=== PATIENT | male | born 1945 | race Caucasian/White ===

== ENCOUNTER → 2016-08-07 | Outpatient (CLI) | payer OTHER ==
[~2016-08-07] MED LIST: ASCO500T16 PO; ASPI-232 PO; ATV/1 PO; COEN10CA5 PO; CTP/1 PO; CTPTP2 TOP; CYAN100T6 PO; LPT40 PO; MAGN1TAB19 PO; METO50TA7 PO; MULT-506 PO; NITR0.4S UT; OMEP20CA9 PO; PLV75 PO; ROSU20TA PO; SILD100T PO; TRIA37.5 PO
--- NOTE | 2016-08-08 19:30 | MYOCARDIAL PERFUSION SCAN ---
REQUESTING PHYSICIAN: Stephon Mensah MD PRIMARY CARE PHYSICIAN: Dr. Nair. TYPE OF STUDY: One-day nuclear medicine technetium-99m Cardiolite myocardial perfusion scan. INDICATION: Exertional atypical chest pain, history of CAD. ELECTROCARDIOGRAM: Baseline EKG shows normal sinus rhythm without significant ST abnormalities. STRESS ELECTROCARDIOGRAM: The patient exercised for 7 minutes and 24 seconds on a standard Carlos protocol, obtained 10.1 MET workload and heart rate of 130 beats per minute (87% maximum predicted heart rate). Resting blood pressure bradley from 172/80-184/78, test was ended due to the fatigue, patient did experience some mild chest burning. With peak exercise, patient had sinus tachycardia with horizontal upsloping ST depressions, 1 mm in the lateral leads, which resolved within 2 minute into recovery. TECHNIQUE: For the stress portion of the study 32.4 mCi of technetium-99m Cardiolite IV was injected at 13:20 p.m. on August 07. Fifteen minutes following the injection, imaging of the heart was performed in multiple projections. For the rest portion of the study, 10.7 mCi of technetium-99m Cardiolite was injected IV at 11:25 a.m. One hour following the injection, imaging of the heart was performed in the same projections. FINDINGS: Rotating raw images were reviewed in detail. There was evidence of mild diaphragmatic attenuation as well as gut and liver uptake near the inferior imaging border of the heart. There was no significant extracardiac pathologic uptake. Short axis, vertical long axis, and horizontal long axis images were reviewed in detail. There was a subtle, small, partially reversible inferolateral, lateral perfusion defect. LV function in this territory was normal and there was suggestion of diaphragmatic shadow. Suspect this largely represents artifact. Otherwise, perfusion was normal. LV size was normal with end-diastolic volume of 83 mL. LV function overall was normal with EF of 68%. There were no regional wall motion abnormalities. IMPRESSION: 1. Grossly normal myocardial perfusion scan. Small subtle lateral defect likely represents artifact less likely, represents a small amount of ischemia in a diagonal, obtuse marginal distribution (STS less than 3). 2. Normal overall left ventricular systolic function with an ejection fraction of 68% and no regional wall motion abnormalities, normal left ventricular size. 3. Positive stress EKG for ischemia with [address] depressions laterally at 87% maximum predicted heart rate. ST segments quickly resolved within 2 minutes in recovery. 4. Above average exercise tolerance, exercised for 7 minutes and 24 seconds, achieved 10.1 METS. Mild nonlimiting chest burning with exertion.
== END | disposition home or self-care (01) ==
LOC: C.NUCL 11:01
PROVIDERS: ATTEND Internal Medicine Cardiovascular Disease
DX: I25.10 Atherosclerotic heart disease of native coronary artery without angina pectoris (principal)

== ENCOUNTER → 2016-08-10 | Outpatient (CLI) | payer OTHER ==
--- NOTE | 2016-08-10 13:11 | DIAGNOSTIC IMAGING REPORT ---
RIGHT HAND MIN 3 VIEWS CLINICAL HISTORY: Right hand pain. No known injury. COMPARISON: Right hand radiographs April 06, 2007. FINDINGS: Alignment of the right hand is anatomic. There is no fracture or suspicious lesion. There may be a cyst within the third metacarpal head. This is unchanged. No erosions are identified. Joint spaces are preserved. IMPRESSION: Unremarkable right hand radiographs for age. Electronically signed by: Tristen Manley M.D. 08/10/2016 1:09 PM Dictated Date/Time: 08/10/2016 1:08 PM
== END | disposition home or self-care (01) ==
LOC: C.RDSM 13:21
PROVIDERS: ATTEND Physician Assistant
DX: M79.641 Pain in right hand (principal)

== ENCOUNTER → 2016-12-08 | Outpatient (CLI) | payer OTHER ==
[~2016-12-08] MED LIST changes: -CTPTP2 TOP; +GADAVIST IV PRN; -LPT40 PO
--- NOTE | 2016-12-08 13:21 | DIAGNOSTIC IMAGING REPORT ---
BRAIN COMBO CLINICAL HISTORY: 71 years-old Male presenting with DIZZINESS, ABNORMAL GAIT. TECHNIQUE: Multisequence, multiplanar MR imaging of the brain was performed before and after the administration of intravenous contrast. IV contrast: 3.5 mL of Gadavist. COMPARISON: 07/28/2006. FINDINGS: Proportional ventricular and sulcal prominence, likely age-related parenchymal volume loss. Periventricular and subcortical white matter T2/FLAIR hyperintensity, nonspecific but likely indicative of chronic small vessel ischemic change. No mass effect or midline shift. No restricted diffusion to suggest acute ischemia. No hemorrhage. No extra-axial fluid collection. T2 skull base flow voids preserved. No abnormal parenchymal enhancement. Bone marrow signal intensity within the calvarium within normal limits. Polypoid mucosal thickening in the sphenoid sinus. IMPRESSION: 1. Chronic small vessel ischemic change. No acute intracranial abnormality. 2. No abnormal enhancement. Electronically signed by: Simon Han M.D. 12/08/2016 1:19 PM Dictated Date/Time: 12/08/2016 1:15 PM
== END | disposition home or self-care (01) ==
LOC: C.MRIBC 12:23
PROVIDERS: ATTEND Physician Assistant
DX: R26.9 Unspecified abnormalities of gait and mobility (principal); R42 Dizziness and giddiness; I95.1 Orthostatic hypotension

== ENCOUNTER → 2017-03-09 | Outpatient (CLI) | payer OTHER ==
[~2017-03-09] MED LIST changes: +CTPTP2 TOP; -GADAVIST IV PRN; +LPT40 PO; -PLV75 PO; -ROSU20TA PO
--- NOTE | 2017-03-09 14:46 | DIAGNOSTIC IMAGING REPORT ---
R SHOULDER MIN 2 VIEWS CLINICAL HISTORY: RIGHT SHOULDER PAIN COMPARISON: None. DISCUSSION: No fractures or dislocations are visualized. There are no erosive or destructive changes. IMPRESSION: Unremarkable measuring radiographic evaluation of the right shoulder. Electronically signed by: Kemal Torres M.D. 03/09/2017 2:45 PM Dictated Date/Time: 03/09/2017 2:44 PM
== END | disposition home or self-care (01) ==
LOC: C.RDSM 07:29
PROVIDERS: ATTEND Physician Assistant
DX: R52 Pain, unspecified (principal)

== ENCOUNTER 2023-08-22 09:35 | Observation (INO) ==
--- OUTSIDE RECORDS SUMMARY | 2023-08-22 09:39 | External Medical Summary | Continuity of Care Document ---
Author Name Unknown Organization [facility] [address] [place] [phone] Care Team Providers Care Supervisor Of Research Name Role Phone Justo Xavier Primary Care Physician [phone] Encounter [facility] [id number] Date(s): 08/11/23 - 08/11/23 [facility] [address] [facility] Medical [facility] [address] [id number] [phone] Encounter Diagnosis Body mass index [BMI] 29.0-29.9, adult(Discharge Diagnosis) - 08/11/23 OTHER AND UNSPECIFIED HYPERLIPIDEMIA(Discharge Diagnosis) - 08/11/23 IFG (impaired fasting glucose)(Discharge Diagnosis) - 08/11/23 CAD(Discharge Diagnosis) - 08/11/23 CAD(Discharge Diagnosis) - 08/11/23 Elevated serum protein level(Discharge Diagnosis) - 08/11/23 Low vitamin B12 level(Discharge Diagnosis) - 08/11/23 Serum calcium elevated(Discharge Diagnosis) - 08/11/23 HTN (hypertension)(Discharge Diagnosis) - 08/11/23 Discharge Disposition: Home or Self Care Attending Physician: DO Xavier Franklin J Allergies, Adverse Reactions, Alerts Substance Criticality Severity Reaction Reaction Severity Status lisinopril cough Active Avapro muscle cramps Active Endocet itchy Active Animal dander 1 Itching of eye Active Percocet Itching Activ e 1cats Assessment and Plan Extracted from: Title:General Exam * Author:DO Xavier Franklin J Date:08/11/23 Impression and Plan Diagnosis Serum calcium elevated (TXP21-HQ E83.52, Discharge, Medical). OTHER AND UNSPECIFIED HYPERLIPIDEMIA (WNV46-AW E78.5, Discharge, Medical). Low vitamin B12 level (HKY13-HM R79.89, Discharge, Medical). IFG (impaired fasting glucose) (UFD86-LE R73.01, Discharge, Medical). HTN (hypertension) ([id number]-[id number] I10, Discharge, Medical). Elevated serum protein level (QKU74-GY R77.9, Discharge, Medical). CAD (KAV48-TV I25.10, Discharge, Medical). CAD (QFV04-BW I25.10, Discharge, Medical). Plan: Thrombocytopenia (chronic/stable) Anemia (chronic/stable) He had a work up with oncology previously, including BMB, and thrombocytopenia thought to be multifactorial Platelet count has slowly trended up and is now in normal range B12 deficiency (chronic/not at goal) Improved with IM supplementation Continue p.o. supplementation Check B2 level with next labs Elevated Calcium (new) Add Vitamin D 3,000-5,000 IUs daily Check Vitamin D level and PTH in about three months Elevated Serum Protein (new) Check SPEP and UPEP along with CBC in three months CAD (chronic/stable) No signs or symptoms Continue care with cardiology HTN (chronic/stable) Reasonable today He is always slightly higher in the office than at home Continue same; primarily managed by cardiology Steatohepatitis (chronic/stable) LFTs with slight elevation, but with his range Recheck 6 months IFG (chronic/stable) Improved Recheck A1c in 6 months Balance concerns (chronic/not at goal) Neurology consult reviewed with patient Probably multifactorial, slowed reflexes and decreased core muscle strength Discussed physical therapy as a means to improve both, he will consider Discussed general fall prevention. Orders PowerOrders Laboratory: CMP Request (Order): Routine, 08/11/2023 14:03 EDT, Requested Timeframe 2 Weeks Prior to Next Visit UPEP Random Request (Order): 08/11/2023 14:03 EDT, Routine, Requested Timeframe 2 Weeks Prior to Next Visit, Urine SPEP Request (Order): Routine, 08/11/2023 14:03 EDT, Requested Timeframe 2 Weeks Prior to Next Visit Vitamin B12 Level Request (Order): Routine, 08/11/2023 14:03 EDT, Requested Timeframe 2 Weeks Prior to Next Visit Vitamin D, 25-Hydroxy Level, Total Request (Order): Routine, 08/11/2023 14:02 EDT, Requested Timeframe 2 Weeks Prior to Next Visit PTH Request (Order): Routine, 08/11/2023 14:02 EDT, Requested Timeframe 2 Weeks Prior to Next Visit, Fasting CBC w Platelets and Diff Request (Order): Routine, 08/11/2023 14:03 EDT, Requested Timeframe 2 Weeks Prior to Next Visit Evaluation and Management: [id number] Outpatient Visit Est Lvparag 4 (Order): 08/11/2023 14:04 EDT, [facility]ILY [facility], Elevated serum protein level | Low vitamin B12 level | Serum calcium elevated | HTN (hypertension) | OTHER AND UNSPECIFIED HYPERLIPIDEMIA | IFG (impaired fasting glucose) | CAD. PowerOrders Patient Care Ambulatory: Follow Up Appointment Ambulatory (Order): In 6 Months, Appointment Type In Office, 40, Follow up With DO Xavier Franklin J. Immunizations Given and Recorded Vaccine Date Status Refusal Reason SARS-CoV-2 (COVID-19) mRNA-vacc - [id number] 01/26/23 Recorded RSV vaccine preF3, recombinant 01/19/23 Recorded influenza virus vaccine, inactivated 01/19/23 Naga rded influenza virus vaccine, inactivated 01/12/22 Naga rded influenza virus vaccine, inactivated 01/17/19 Naga rded influenza virus vaccine, inactivated 1 12/25/17 Re corded influenza virus vaccine, inactivated 11/30/16 Give n influenza virus vaccine, inactivated 01/23/16 Give n influenza virus vaccine, inactivated 01/01/15 Give n influenza virus vaccine, inactivated 01/03/14 Give n influenza virus vaccine, inactivated 12/20/12 Give n influenza virus vaccine, inactivated 01/11/12 Give n influenza virus vaccine, inactivated 2 12/26/09 Re corded influenza virus vaccine, inactivated 3 12/20/08 Re corded influenza virus vaccine, inactivated 4 01/19/08 Re corded influenza virus vaccine, inactivated 5 12/20/06 Re corded influenza virus vaccine, inactivated 6 02/04/06 Re corded influenza virus vaccine, inactivated 7 01/15/05 Re corded influenza virus vaccine, inactivated 8 01/30/04 Re corded influenza virus vaccine, inactivated 9 01/18/03 Re corded influenza virus vaccine, inactivated 10 01/04/02 R ecorded influenza virus vaccine, inactivated 11 02/04/01 R ecorded influenza virus vaccine, inactivated 12 03/04/00 R ecorded influenza virus vaccine, inactivated 13 02/12/99 R ecorded influenza virus vaccine, inactivated 14 01/18/98 R ecorded influenza virus vaccine, inactivated 15 01/29/97 R ecorded tetanus/diphtheria/pertuss, acel (Tdap) 07/31/21 R ecorded tetanus/diphtheria/pertuss, acel (Tdap) 09/16/10 R ecorded SARS-CoV-2 (COVID-19) mRNA-1273 vaccine 07/31/21 R ecorded zoster vaccine, inactivated 06/20/21 Recorded zoster vaccine, inactivated 01/20/21 Recorded pneumococcal 23-valent vaccine 16 08/09/17 Given pneumococcal 23-valent vaccine 17 06/17/06 Recorde d pneumococcal 13-valent vaccine 07/06/14 Given zoster vaccine live 18 07/16/09 Recorded influenza virus vaccine, H1N1 19 04/30/09 Recorded tetanus toxoids-diphtheria, Td (Adult) 20 06/11/05 Recorded tetanus toxoids-diphtheria, Td (Adult) 21 01/20/94 Recorded 1Result Comment: 2018-03-16: Historical information-source unspecified 2Result Comment: 2018-03-16: Historical information-source unspecified 3Result Comment: 2018-03-16: Historical information-source unspecified 4Result Comment: 2018-03-16: Historical information-source unspecified 5Result Comment: 2018-03-16: Historical information-source unspecified 6Result Comment: 2018-03-16: Historical information-source unspecified 7Result Comment: 2018-03-16: Historical information-source unspecified 8Result Comment: 2018-03-16: Historical information-source unspecified 9Result Comment: 2018-03-16: Historical information-source unspecified 10Result Comment: 2018-03-16: Historical information-source unspecified 11Result Comment: 2018-03-16: Historical information-source unspecified 12Result Comment: 2018-03-16: Historical information-source unspecified 13Result Comment: 2018-03-16: Historical information-source unspecified 14Result Comment: 2018-03-16: Historical information-source unspecified 15Result Comment: 2018-03-16: Historical information-source unspecified 16Early/Late Reason: Other : because 17Result Comment: 2018-03-16: Historical information-source unspecified 18Result Comment: 2018-03-16: Historical information-source unspecified 19Result Comment: 2021-02-05: Historical information-source unspecified 20Result Comment: 2018-03-16: Historical information-source unspecified 21Result Comment: 2018-03-16: Historical information-source unspecified Medications aspirin Start: 08/02/15 9:42:00 AM EDT, 81 mg =, qPM Start Date: 08/02/15 Status: Ordered atorvastatin 40 mg oral tablet Start: 08/02/15 10:03:00 AM EDT, 1 tab, PO, qhs Start Date: 08/02/15 Status: Ordered cloNIDine 0.3 mg/24 hr transdermal film, extended release Start: 12/04/22 10:19:00 AM EDT, See Instructions, Disp# 12 patch, Refills: 3, APPLY 1 PATCH TOPICALLY EVERY 7 DAYS, Pharmacy: [facility] Start Date: 12/04/22 Status: Ordered Coenzyme Q10 Start: 04/18/10 10:36:22 AM EST, 100 mg =, PO, Daily, Refills: 0, current medication from another provider Start Date: 04/18/10 Status: Ordered doxycycline hyclate 100 mg oral capsule Start: 07/01/23 2:53:00 PM EDT, 1 cap, PO, Daily, Disp# 30 cap, Refills: 1, One daily with food, Pharmacy: [id number] Start Date: 07/01/23 Status: Ordered fluocinonide 0.05% topical solution Start: 03/23/22 11:42:00 AM EST, See Instructions, Disp# 20 mL, Refills: 1, TO red itchy scalp once or twice a day., Pharmacy: [id number] Start Date: 03/23/22 Status: Ordered hydrochlorothiazide-triamterene 25 mg-37.5 mg oral capsule Start: 05/28/23 12:57:00 PM EST, 1 cap, PO, Daily, Disp# 90 cap, Refills: 3, Pharmacy: [facility] Start Date: 05/28/23 Status: Ordered ketoconazole 2% topical shampoo Start: 01/26/23 8:04:00 AM EST, See Instructions, Disp# 120 mL, Refills: 11, Shampoo at least 3 times per week., Pharmacy: [id number] Start Date: 01/26/23 Status: Ordered lorazepam 1 mg oral tablet Start: 07/20/12 2:08:00 PM EDT, 1 tab, PO, tid, PRN: as needed for anxiety Start Date: 07/20/12 Status: Ordered magnesium oxide 400 mg (241.3 mg elemental magnesium) oral tablet Start: 01/18/15 2:00:00 PM EDT, 1 tab, PO, Daily Start Date: 01/18/15 Status: Ordered Metoprolol Succinate ER 50 mg oral tablet, extended release Start: 11/25/22 11:39:00 AM EDT, See Instructions, Disp# 180 tab, Refills: 3, TAKE 1 TABLET TWICE A DAY, Pharmacy: [facility] Start Date: 11/25/22 Status: Ordered multivitamin with iron Start: 01/11/12 1:27:00 PM EDT, See Instructions, 1 PO daily Start Date: 01/11/12 Status: Ordered Nitrostat 0.3 mg sublingual tablet Start: 07/20/12 2:08:00 PM EDT, 1 tab, SL, q5min, PRN: as needed for chest pain Start Date: 07/20/12 Status: Ordered omeprazole Start: 08/05/18 1:37:00 PM EDT, PO, Daily Start Date: 08/05/18 Status: Ordered sulfacetamide sodium 10% topical lotion Start: 07/01/23 2:52:00 PM EDT, 1 appl, topical, bid, Disp# 59 mL, Refills: 2, To invovled areas BID, Pharmacy: [id number] Start Date: 07/01/23 Status: Ordered Viagra 100 mg oral tablet Start: 01/24/19 11:06:00 AM EST Start Date: 01/24/19 Status: Ordered Vitamin B12 100 mcg oral tablet Start: 07/20/12 2:11:00 PM EDT, 1 tab, PO, 1 tab two times a week Start Date: 07/20/12 Status: Ordered Vitamin C 500 mg oral tablet Start: 04/18/10 10:33:40 AM EST, 1 tab, PO, Daily, Refills: 0, current medication from another provider Start Date: 04/18/10 Status: Ordered ZyrTEC 10 mg oral tablet Start: 12/03/22 1:43:00 PM EDT, 1 tab, PO, Daily, PRN: as needed for allergy symptoms Start Date: 12/03/22 Status: Ordered Mental Status 08/11/23 Barriers to Learning one year None evide nt Mandatory Health Literacy Documentation Yes Health Literacy Communication Barriers N ever Primary Language Slovenian Problem List Condition Confirmation Course Effective Dates Status H ealth Status Informant ANEMIA Confirmed Active Anxiety Confirmed Active AC (acromioclavicular) joint arthritis Confirmed Active Arthritis of right ankle Confirmed Active Eczema craquele Confirmed Active Watery eyes Confirmed Active CAD Confirmed Active Changing skin lesion Confirmed Active Contact dermatitis Confirmed Active Cough Confirmed Active COVID-19 Confirmed Active Dupuytren's disease of palm Confirmed Active ED (erectile dysfunction) Confirmed Active Epidermal cyst Confirmed Active Family history of cancer Confirmed Active Family history of diabetes Confirmed Active Fatty liver Confirmed 10/19/11 Active Family history of heart attack Confirmed Active Family history of osteoarthritis Confirmed Active Pain in right foot Confirmed Active Acid reflux Confirmed Active Hearing loss Confirmed Active Heart disease Confirmed Active History of squamous cell carcinoma Confirmed Active Hypertension Confirmed Active High blood pressure Confirmed Active IFG (impaired fasting glucose) Confirmed Active Impingement syndrome of shoulder region Confirmed Active Inflamed seborrheic keratosis Confirmed Active Ingrown toenail Confirmed Active Insomnia Confirmed Active Joint pain Confirmed Active Laminectomy 1 Confirmed Active Low back pain Confirmed Active Right lumbar radiculopathy Confirmed Active Lumbosacral radiculopathy at L4 Confirmed Active Actinic keratoses Confirmed Active Tinea unguium Confirmed Active OTHER AND UNSPECIFIED HYPERLIPIDEMIA Confirmed Active Rosacea Confirmed Active Rotator cuff syndrome Confirmed Active Seborrhea Confirmed Active Seborrheic keratoses Confirmed Active Shoulder pain, left Confirmed Active Strain of right shoulder Confirmed Active Skin irritation Confirmed Active Lumbar stenosis Confirmed Active Right hip tendonitis Confirmed Active THROMBOCYTOPENIA, UNSPECIFIED Confirmed Active Trigger finger of left hand Confirmed Active Urinary incontinence Confirmed Active Vertigo Confirmed Active 1L4_S1 Diagnosis Diagnosis Type Effective Dates Health Status Clinical Service Informant Body mass index [BMI] 29.0-29.9, adult Discharge Diagnosis 08/11/23 Non-Specified IFG (impaired fasting glucose) Discharge Diagnosis 08/11/23 Non-Specified OTHER AND UNSPECIFIED HYPERLIPIDEMIA Discharge Diagnosis 08/11/23 Non-Specified CAD Discharge Diagnosis 08/11/23 Non-Specified Elevated serum protein level Discharge Diagnosis 08/11/23 Non-Specified HTN (hypertension) Discharge Diagnosis 08/11/23 Non-Specified Low vitamin B12 level Discharge Diagnosis 08/11/23 Non-Specified Serum calcium elevated Discharge Diagnosis 08/11/23 Non-Specified CAD Discharge Diagnosis 08/11/23 Non-Specified Procedures Procedure Date Related Diagnosis Body Site Status Shave biopsy 1 04/21/23 Completed Shave biopsy and cauterizati on of skin 2 03/03/23 Completed Acquired trigger finger 08/25/22 C ompleted Chest X-ray 3 03/07/22 Completed Shave biopsy and cauterization of skin 12/01/21 Completed Injection - action 4 08/21/21 Comp leted MRI of lumbar spine 5 07/29/21 Com pleted Plain X-ray of lumbar spine 6 07/29/21 Completed Injection 7 07/02/21 Completed Excision 02/20/21 Completed MRI of brain combo 8 08/22/20 Comp leted Shave biopsy and cauterizati on of skin 9 01/24/19 Completed Shave biopsy and cauterization of skin 12/01/18 Completed Shave biopsy and cauterisati on of skin 10 07/13/18 Completed Shoulder X-ray- right 11 03/09/[address] of abdomen and pelvis 12 01/21/17 Completed MRI of head 13 12/08/16 Completed Procedure,99m cardiolite hank cardial perfusion scan nuclear medicine technetium- 08/07/16 Completed Lumbar Laminectomy 01/08/16 Comple amarilis Upper GI endoscopy 11/22/15 Comple amarilis Colonoscopy 14 07/01/15 Completed Cardiac Catherization & Ana nary Artery stent, multiple 12/2014 Completed Colonoscopy, multiple 2009 Completed L5-S1 laminectomy. Left-side d L5 foraminotomy. 05/02/08 Completed Inguinal Hernia repair 03/27/08 Co mpleted pilonidal cyst 2008 Completed Tonsillectomy 1950 Completed 1right nasal tip 2with ED&C 3Impression: no active disease in the chest. 4Pain Mangement-Trigger Point Injection Ropivicaine Ken[place] Ketorolac 51. No fractures within the lumbar spine. 2. L4-S1 posterior decompression. No significant central canal narrowing at these levels. 3. Multilevel bilateral neural foraminal narrowing as described above most pronounced at the L4-5 and L5-S1 levels. This is slightly progressed. 61. No fractures within the lumbar spine. 2. Mild levoscoliosis. 3. Multilevel degenerative changes as described above most pronounced at the L4- 5 level. 7[facility] 8Impression: senescent change as above with no acute intracranial abnormality identified 9right dorsal hand 10Left upper back 11Unremarkable measuring radiographic evaluation of the right shoulder. 12impression: 1. Multiple mildly dilated thick-walled small bowel loops consistent with a nonspecific enteritis 2. No evidence of bowel obstruction. no evidenc of free air 3. normal appendix 4. extensive sigmoid diverticulosis. No evidence of acute diveticulitis 13[facility] Impression: 1. Chronic small vessel ischemic change. No acute intracranial abnormality 2. No abnormal enhancement 1410 Year Recall [id number] (last colonoscopy) No polyps Vital Signs Most recent to oldest [Reference Range]: 1 Height 172 cm (08/11/23 1:30 PM) Patient Weight 87.2 kg (08/11/23 1:30 PM) Body Mass Index 29.48 kg/m2 (08/11/23 1:30 PM) Heart Rate 65 bpm (08/11/23 1:30 PM) Respiratory Rate 18 br/min (08/11/23 1:30 PM) Blood Pressure 142/88mmHg (08/11/23 1:30 PM) Cuff Pulse Pressure 54 mmHg (08/11/23 1:30 PM) Social History Social History Type Response Smoking Status Never smoked cigaret adrienne Sex Male Outpatient Note * DO Xavier Franklin J: PERFORM, SIGN, VERIFY Event Display: .Outpt Note Authored Date: [id number] Patient: STEVE BULLARD Age: 78 years Sex: Male : 1945 Associated Diagnoses: None Author: DO Xavier Franklin J Visit Information Visit type: Scheduled follow-up. Chief Complaint 08/11/2023 13:29 EDT 6 month f/u History of Present Illness Saw neurology for his balance and vertigo issues - NNG and EMG scheduled/pending. He saw cardiologyyesterday for echocardiogram and has follow up with cardiology next week. Generally the same in terms of activity. Balance issues are partially limiting. No chest pain or shortness of breath. He has a longstanding history of thrombocytopenia. He actually saw hematology about a decade ago; his platelet count had been stable around 100, but X over the last 18 months, it is slowly trended upand is actually in the normal range today. Has a history of B12 deficiency; he had IM supplementation which brought him up to about 600 and then we transitioned him to oral supplementation. He continues on a B12 supplement. Review of Systems Constitutional: No fever, No chills. Eye: Negative. Ear/Nose/Mouth/Throat: Negative. Respiratory: No shortness of breath, No cough. Cardiovascular: No chest pain. Health Status Allergies: Allergic Reactions (Selected) Severity Not Documented Animal dander- Itching of eye. Avapro- Muscle cramps. Endocet- Itchy. Lisinopril- Cough. Percocet 5/325- Itching.. Current medications: (Selected) Prescriptions Prescribed Metoprolol Succinate ER 50 mg oral tablet, extended release: See Instructions, TAKE 1 TABLET TWICE A DAY, 180 tab, 3 Refill(s) cloNIDine 0.3 mg/24 hr transdermal film, extended release: See Instructions, APPLY 1 PATCH TOPICALLY EVERY 7 DAYS, 12 patch, 3 Refill(s) doxycycline hyclate 100 mg oral capsule: 1 cap, PO, Daily, One daily with food, 30 cap, 1 Refill(s) fluocinonide 0.05% topical solution: See Instructions, TO red itchy scalp once or twice a day., 20 mL, 1 Refill(s) hydrochlorothiazide-triamterene 25 mg-37.5 mg oral capsule: 1 cap, PO, Daily, 90 cap, 3 Refill(s) ketoconazole 2% topical shampoo: See Instructions, Shampoo at least 3 times per week., 120 mL, 11 Refill(s) sulfacetamide sodium 10% topical lotion: 1 appl, topical, bid, To invovled areas BID, 59 mL, 2 Refill(s) Documented Medications Documented Coenzyme Q10: 100 mg, PO, Daily Nitrostat 0.3 mg sublingual tablet: 1 tab, SL, q5min, PRN: as needed for chest pain Viagra 100 mg oral tablet: Vitamin B12 100 mcg oral tablet: 1 tab, PO, 1 tab two times a week Vitamin C 500 mg oral tablet: 500 mg, 1 tab, PO, Daily ZyrTEC 10 mg oral tablet: 1 tab, PO, Daily, PRN: as needed for allergy symptoms aspirin: 81 mg, qPM atorvastatin 40 mg oral tablet: 1 tab, PO, qhs lorazepam 1 mg oral tablet: 1 tab, PO, tid, PRN: as needed for anxiety magnesium oxide 400 mg (241.3 mg elemental magnesium) oral tablet: 1 tab, PO, Daily multivitamin with iron: See Instructions, 1 PO daily omeprazole: PO, Daily. Problem list: Medical Watery eyes / SNOMED CT 5023454677 / Confirmed Vertigo / SNOMED CT 9951814535 / Confirmed Urinary incontinence / SNOMED CT 8906552938 / Confirmed Trigger finger of left hand / SNOMED CT 749418695 / Confirmed Tinea unguium / SNOMED CT 4249350275 / Confirmed THROMBOCYTOPENIA, UNSPECIFIED / ICD-9-CM 287.5 / Confirmed Strain of right shoulder / SNOMED CT 944870265 / Confirmed Skin irritation / SNOMED CT 445918686 / Confirmed Shoulder pain, left / ICD-9-CM 719.41 / Confirmed Seborrheic keratoses / SNOMED CT 2050094035 / Confirmed Seborrhea / SNOMED CT 3177485581 / Confirmed Rotator cuff syndrome / SNOMED CT 0238419 / Confirmed Rosacea / SNOMED CT 6433359236 / Confirmed Right lumbar radiculopathy / SNOMED CT 612567479 / Confirmed Right hip tendonitis / SNOMED CT 5918874582 / Confirmed Pain in right foot / SNOMED CT 896442339 / Confirmed OTHER AND UNSPECIFIED HYPERLIPIDEMIA / ICD-9-CM 272.4 / Confirmed Lumbosacral radiculopathy at L4 / SNOMED CT 8530923 / Confirmed Lumbar stenosis / SNOMED CT 04247160 / Confirmed Low back pain / ICD-9-CM 724.2 / Complaint of Low back pain / SNOMED CT 209383812 / Confirmed Laminectomy / SNOMED CT 8042051753 / Confirmed Joint pain / SNOMED CT 47796646 / Confirmed Insomnia / ICD-9-CM 780.52 / Confirmed Ingrown toenail / SNOMED CT 9404083059 / Confirmed Inflamed seborrheic keratosis / SNOMED CT 7078570964 / Confirmed Impingement syndrome of shoulder region / SNOMED CT 996466888 / Confirmed IFG (impaired fasting glucose) / SNOMED CT 3815772644 / Confirmed Hypertension / SNOMED CT 08539501 / Confirmed History of squamous cell carcinoma / SNOMED CT 1300245879 / Confirmed High blood pressure / SNOMED CT 6787372347 / Confirmed Heart disease / SNOMED CT 57219112 / Confirmed Hearing loss / SNOMED CT 64352591 / Confirmed GOUT / ICD-9-CM 274 / Complaint of Fatty liver / ICD-9-CM 571.8 / Confirmed Family history of osteoarthritis / SNOMED CT 364146318 / Confirmed Family history of heart attack / SNOMED CT 545063244 / Confirmed Family history of diabetes / SNOMED CT 8209820865 / Confirmed Family history of cancer / SNOMED CT 012709970 / Confirmed Epidermal cyst / SNOMED CT 2495574888 / Confirmed ED (erectile dysfunction) / ICD-9-CM 607.84 / Confirmed Eczema craquele / SNOMED CT 382057527 / Confirmed Dupuytren's disease of palm / SNOMED CT 602696934 / Confirmed COVID-19 / SNOMED CT 6046075389 / Confirmed Cough / SNOMED CT 60012727 / Confirmed Contact dermatitis / SNOMED CT 89920805 / Confirmed Changing skin lesion / SNOMED CT 5579318567 / Confirmed CAD / ICD-9-CM 414.00 / Confirmed ASTHMA / ICD-9-CM 493 / Complaint of Arthritis of right ankle / SNOMED CT 1722419167 / Confirmed Anxiety / SNOMED CT 68779970 / Confirmed ANEMIA / ICD-9-CM 285.9 / Confirmed Actinic keratoses / SNOMED CT 3659339449 / Confirmed Acid reflux / SNOMED CT 781652112 / Confirmed AC (acromioclavicular) joint arthritis / SNOMED CT 5090232307 / Confirmed All Problems Watery eyes / SNOMED CT 8173779222 / Confirmed Vertigo / SNOMED CT 7386935227 / Confirmed Urinary incontinence / SNOMED CT 2195355312 / Confirmed Trigger finger of left hand / SNOMED CT 952337147 / Confirmed Tinea unguium / SNOMED CT 2426051193 / Confirmed THROMBOCYTOPENIA, UNSPECIFIED / ICD-9-CM 287.5 / Confirmed Strain of right shoulder / SNOMED CT 593651043 / Confirmed Skin irritation / SNOMED CT 024232132 / Confirmed Shoulder pain, left / ICD-9-CM 719.41 / Confirmed Seborrheic keratoses / SNOMED CT 9960070314 / Confirmed Seborrhea / SNOMED CT 2827732791 / Confirmed Rotator cuff syndrome / SNOMED CT 5331381 / Confirmed Rosacea / SNOMED CT 6419538627 / Confirmed Right lumbar radiculopathy / SNOMED CT 742335751 / Confirmed Right hip tendonitis / SNOMED CT 1126914604 / Confirmed Pain in right foot / SNOMED CT 954614332 / Confirmed OTHER AND UNSPECIFIED HYPERLIPIDEMIA / ICD-9-CM 272.4 / Confirmed Lumbosacral radiculopathy at L4 / SNOMED CT 9338976 / Confirmed Lumbar stenosis / SNOMED CT 96966623 / Confirmed Low back pain / ICD-9-CM 724.2 / Complaint of Low back pain / SNOMED CT 841573552 / Confirmed Laminectomy / SNOMED CT 8600745954 / Confirmed Joint pain / SNOMED CT 29325648 / Confirmed Insomnia / ICD-9-CM 780.52 / Confirmed Ingrown toenail / SNOMED CT 5097291708 / Confirmed Inflamed seborrheic keratosis / SNOMED CT 0824382172 / Confirmed Impingement syndrome of shoulder region / SNOMED CT 109227802 / Confirmed IFG (impaired fasting glucose) / SNOMED CT 9448692601 / Confirmed Hypertension / SNOMED CT 73482920 / Confirmed History of squamous cell carcinoma / SNOMED CT 3347382901 / Confirmed High blood pressure / SNOMED CT 4656703258 / Confirmed Heart disease / SNOMED CT 62294360 / Confirmed Hearing loss / SNOMED CT 73430924 / Confirmed GOUT / ICD-9-CM 274 / Complaint of Fatty liver / ICD-9-CM 571.8 / Confirmed Family history of osteoarthritis / SNOMED CT 990184692 / Confirmed Family history of heart attack / SNOMED CT 237521539 / Confirmed Family history of diabetes / SNOMED CT 6237570370 / Confirmed Family history of cancer / SNOMED CT 964457150 / Confirmed Epidermal cyst / SNOMED CT 4641576624 / Confirmed ED (erectile dysfunction) / ICD-9-CM 607.84 / Confirmed 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 / SNOMED CT 781357939 / Confirmed COVID-19 / SNOMED CT 0406647139 / Confirmed Cough / SNOMED CT 89292368 / Confirmed Contact dermatitis / SNOMED CT 51399833 / Confirmed Changing skin lesion / SNOMED CT 8829596949 / Confirmed CAD / ICD-9-CM 414.00 / Confirmed ASTHMA / ICD-9-CM 493 / Complaint of Arthritis of right ankle / SNOMED CT 1918723420 / Confirmed Anxiety / SNOMED CT 13019707 / Confirmed ANEMIA / ICD-9-CM 285.9 / Confirmed Actinic keratoses / SNOMED CT 4759854987 / Confirmed Acid reflux / SNOMED CT 468885890 / Confirmed AC (acromioclavicular) joint arthritis / SNOMED CT 1743181128 / Confirmed. Histories Family History: Cardiovascular disease Mother High Blood Pressure Mother Heart disease Unknown Kidney disease Father . Social History Social & Psychosocial Habits No Data Available . Physical Examination Vital Signs 08/11/2023 13:30 EDT Heart Rate 65 bpm Respiratory Rate 18 br/min Systolic Blood Pressure 142 mmHg Diastolic Blood Pressure 88 mmHg Cuff Pulse Pressure 54 mmHg SpO2 98 % Measurements from flowsheet : Measurements 08/11/2023 13:31 EDT Osteoporosis Screening Tool 1.64 08/11/2023 13:30 EDT Height 172 cm Height Method Standing Patient Weight 87.2 kg Weight 87.200 kg Weight Method Standing Scale Body Mass Index 29.48 kg/m2 Body Surface Area 2.04 m2 [place] Body Weight 67.7 kg Height/Weight Refused Height/Weight Taken General: Alert and oriented. Eye: Pupils are equal, round and reactive to light, Extraocular movements are intact, Normal conjunctiva. HENT: Normocephalic, Normal hearing. Neck: Supple, Non-tender. Respiratory: Lungs are clear to auscultation, Respirations are non-labored. Cardiovascular: Normal rate, Regular rhythm. Musculoskeletal Normal range of motion. Integumentary: Warm, Dry, [place]. Neurologic: Alert, Oriented, Normal sensory. Psychiatric: Cooperative, Appropriate mood & affect. Health Maintenance Health Maintenance Pending (in the next year) OverDue Medicare Annual Wellness Visit due 02/04/23 and every 1 year Due Adult COVID-19 Vaccination due 08/11/23 Unknown Frequency Adult Social Determinants of Health Screening due 08/11/23 Unknown Frequency Falls Plan of Care due 08/11/23 Unknown Frequency Due In Future Adult Influenza Vaccine not due until 09/19/23 and every 1 year Satisfied (in the past 1 year) Satisfied Adult Influenza Vaccine on 01/19/23. Satisfied by TREVON Casey Amber Body Mass Index on 08/11/23. Satisfied by TREVON Beavers Kyla Lipid Screening on 08/04/23. Satisfied by Contributor_system, Sendori Review / Management Results review: Lab results 08/04/2023 09:49 EDT Na 136 mmol/L LOW K 4.2 mmol/L Cl- 99 mmol/L HCO3 29 mmol/L Anion Gap 8 mmol/L BUN 23 mg/dL HI Cret 1.24 mg/dL eGFR CKD-EPI 59 mL/min/1.73 m2 LOW Glu 139 mg/dL HI Ca 10.4 mg/dL HI WBC 7.47 K/uL Hgb 13.6 g/dL Hct 38.9 % LOW RBC 4.47 M/uL MCV 87.0 fL MCHC 35.0 g/dL MCH 30.4 pg RDW 12.9 % Plts 154 K/uL MPV 10.3 fL Type of Diff: AUTO Immature Gran% 0.8 % Neut% 61.0 % Lymph% 25.0 % [place]% 8.8 % Baso% 0.8 % Eos% 3.6 % Immat Gran, Abs 0.06 K/uL Neut, Abs 4.55 K/uL Lymph, Abs 1.87 K/uL [place], Abs 0.66 K/uL Baso, Abs 0.06 K/uL Eos, Abs 0.27 K/uL ALT 43 unit/L T Bili 1.0 mg/dL Alk Phos 87 unit/L AST 54 unit/L HI Alb 4.6 g/dL Prot 8.5 g/dL HI Chol 145 mg/dL LDL Chol, Calculated 28 mg/dL LOW HDL 67 mg/dL Non-HDL 78 mg/dL Chol/HDL 2 TG 251 mg/dL HI HbA1c 6.0 % HI Estimated Average Glucose 126 mg/dL . Impression and Plan Diagnosis Serum calcium elevated (OWX52-BF E83.52, Discharge, Medical). OTHER AND UNSPECIFIED HYPERLIPIDEMIA (XNZ69-ZJ E78.5, Discharge, Medical). Low vitamin B12 level (GXJ79-SN R79.89, Discharge, Medical). IFG (impaired fasting glucose) (DTM52-SO R73.01, Discharge, Medical). HTN (hypertension) (HTA46-PX I10, Discharge, Medical). Elevated serum protein level (GCZ43-YD R77.9, Discharge, Medical). CAD (SJS16-QG I25.10, Discharge, Medical). CAD (PUB43-QX I25.10, Discharge, Medical). Plan: Thrombocytopenia (chronic/stable) Anemia (chronic/stable) He had a work up with oncology previously, including BMB, and thrombocytopenia thought to be multifactorial Platelet count has slowly trended up and is now in normal range B12 deficiency (chronic/not at goal) Improved with IM supplementation Continue p.o. supplementation Check B2 level with next labs Elevated Calcium (new) Add Vitamin D 3,000-5,000 IUs daily Check Vitamin D level and PTH in about three months Elevated Serum Protein (new) Check SPEP and UPEP along with CBC in three months CAD (chronic/stable) No signs or symptoms Continue care with cardiology HTN (chronic/stable) Reasonable today He is always slightly higher in the office than at home Continue same; primarily managed by cardiology Steatohepatitis (chronic/stable) LFTs with slight elevation, but with his range Recheck 6 months IFG (chronic/stable) Improved Recheck A1c in 6 months Balance concerns (chronic/not at goal) Neurology consult reviewed with patient Probably multifactorial, slowed reflexes and decreased core muscle strength Discussed physical therapy as a means to improve both, he will consider Discussed general fall prevention. Orders PowerOrders Laboratory: CMP Request (Order): Routine, 08/11/2023 14:03 EDT, Requested Timeframe 2 Weeks Prior to Next Visit UPEP Random Request (Order): 08/11/2023 14:03 EDT, Routine, Requested Timeframe 2 Weeks Prior to Next Visit, Urine SPEP Request (Order): Routine, 08/11/2023 14:03 EDT, Requested Timeframe 2 Weeks Prior to Next Visit Vitamin B12 Level Request (Order): Routine, 08/11/2023 14:03 EDT, Requested Timeframe 2 Weeks Prior to Next Visit Vitamin D, 25-Hydroxy Level, Total Request (Order): Routine, 08/11/2023 14:02 EDT, Requested Timeframe 2 Weeks Prior to Next Visit PTH Request (Order): Routine, 08/11/2023 14:02 EDT, Requested Timeframe 2 Weeks Prior to Next Visit,Fasting CBC w Platelets and Diff Request (Order): Routine, 08/11/2023 14:03 EDT, Requested Timeframe 2 WeeksPrior to Next Visit Evaluation and Management: 10179 Outpatient Visit Est Lvl 4 (Order): 08/11/2023 14:04 EDT, FAMILY MEDICINE, Elevated serum protein level | Low vitamin B12 level | Serum calcium elevated | HTN (hypertension) | OTHER AND UNSPECIFIED HYPERLIPIDEMIA | IFG (impaired fasting glucose) | CAD. PowerOrders Patient Care Ambulatory: Follow Up Appointment Ambulatory (Order): In 6 Months, Appointment Type In Office, 40, Follow up With DO Xavier Franklin J. [facility] Review of historical lab work (CBCs, previous LFTs): 3 minutes Review of outside consult (neurology): 3 minutes Attr-ni-iyar with patient: 20 minutes Documentation and orders: 10 minutes Electronic Signature on File Electronically Reviewed/Signed by: Justo Xavier DO Author Signature Dt/Tm:08/11/2023 02:19 PM Department of Family Medicine [facility] Patient Care team information Care Team Personnel Name: HARDY Berrios Tara Position: Nurse Pract - Family Med Member Role: Lifetime Relationship Address: Address: [address] [place] [address], [place] [address] Name: DO Xavier Franklin J Position: Physician - Family Med Member Role: Primary Care Provider Address: Address: [address] [place] [address], [place] [address] Care Team Related Persons Name: NASH BULLARD Address: home [address] [facility], [place] [id number]"
--- NOTE | 2023-08-22 10:01 | Emergency Department Note ---
History of Present Illness General Chief complaint: Arrhythmia/Palpitations Stated complaint: POSSIBLE AFIB?, Time Seen by Provider: 08/22/23 09:41 Source: patient, family ( was at the bedside), RN notes reviewed and old records reviewed (02-08-2023-cardiology note as an outpatient) Mode of arrival: ambulatory Limitations: no limitations History of Present Illness This patient is 78-year-old male has history of coronary artery disease and paroxysmal recurrent A-fib, comes in after having an episode overnight around 130 when he felt like his heart was different. He felt like he had heartburn he took some Tums he denies any chest pain shortness of breath or dyspnea on exertion he does have an ellen on his phone and he measured his heartbeat it was in the 60s but seems somewhat irregular. He had no lightheadedness or dizziness. He does take a baby aspirin but no blood thinners. I reviewed his old records .he does have a documented history of recurrent A-fib but does not seem to be on any other blood thinners at present. He denies any pain anywhere no recent illness or fever or chills. No focal numbness or weakness. Home Medications Medication Instructions Recorded Confirmed Type aspirin 81 mg tablet,delayed 81 mg PO QPM 11/23/18 08/22/23 History release (Adult Low Dose Aspirin) clonidine 0.3 mg/24 hr weekly 0.3 mg transdermal WEEKLY 11/23/18 08/22/23 History transdermal patch coenzyme Q10 10 mg capsule (Co 10 mg PO QPM 11/23/18 08/22/23 History Q-10) magnesium oxide 400 mg (241.3 mg 400 mg PO QAM 11/23/18 08/22/23 History magnesium) tablet multivitamin with iron 1 tab PO QAM 11/23/18 08/22/23 History omeprazole magnesium 20 mg 20 mg PO QPM 11/23/18 08/22/23 History tablet,delayed release (Prilosec OTC) triamterene 37.5 1 cap PO QAM 11/23/18 08/22/23 History mg-hydrochlorothiazide 25 mg capsule (Dyazide) metoprolol succinate 50 mg 50 mg PO BID #180 tabs 08/03/19 08/22/23 Rx tablet,extended release 24 hr clonidine HCl 0.1 mg tablet See Rx Instructions .Route 12/05/19 08/22/23 History .COMPLEX blood pressure acetaminophen 325 mg tablet 325 mg PO QID PRN Pain 08/21/21 08/22/23 History (Tylenol) ascorbate calcium (vitamin C) 500 500 mg PO QAM 07/29/22 08/22/23 History mg tablet ibuprofen 800 mg tablet 800 mg PO Q8H PRN Pain 07/29/22 08/22/23 History nitroglycerin 0.4 mg sublingual 0.4 mg sublingual Q5M PRN chest 01/05/23 08/22/23 Rx tablet pain #25 tabs lorazepam 1 mg tablet 1 mg PO DAILY PRN anxiety #90 tabs 02/25/23 08/22/23 Rx atorvastatin 40 mg tablet 40 mg PO QPM #90 tabs 05/28/23 08/22/23 Rx sildenafil 100 mg tablet 50 - 100 mg (0.5 - 1 x 100 mg) PO 07/02/23 08/22/23 Rx DAILY PRN sexual activity #6 tabs cyanocobalamin (vitamin B-12) 1,000 mcg PO 2XWK 08/22/23 08/22/23 History 1,000 mcg tablet (Vitamin B-12) Allergies Allergy/AdvReac Type Severity Reaction Status Date / Time irbesartan Allergy Intermediate myalgia, Verified 08/22/23 11:46 diarrhea acetaminophen Allergy Unknown itching Verified 08/22/23 11:46 cat dander Allergy Unknown asthma Verified 08/22/23 11:46 related sx oxycodone Allergy Unknown itching Verified 08/22/23 11:46 latex Allergy itching, Verified 08/22/23 11:46 redness lisinopril AdvReac Mild cough Verified 08/22/23 11:46 Past Med/Surg History Problem List (Updated 08/22/23 @ 15:14 by Johnnie Mahan MD) History of CAD (coronary artery disease) (Acute) Chest pain (Acute) Alcohol use A-fib (Acute) Numbness and tingling of both feet Weakness of lower extremity Balance problem Preoperative cardiovascular examination Myofascial pain Sacroiliitis Paroxysmal A-fib Benign keratosis Sensorineural hearing loss (SNHL) of both ears Vertigo Insomnia HTN (hypertension) Hyperglycemia Erectile dysfunction Elevated transaminase level Dyslipidemia CAD (coronary artery disease) Palpitations (Acute) Near syncope Hypomagnesemia H/O prior ablation treatment History of SCC (squamous cell carcinoma) of skin Mitral regurgitation Fatty liver GERD (gastroesophageal reflux disease) Medical History Atrial fibrillation per records. pt denies hx arrhythmia. History of gout HLD (hyperlipidemia) HTN (hypertension) Cardiac murmur CAD (coronary artery disease) follows with Dr. Mensah. History of myocardial infarction 2000 Surgical History History of hernia repair History of excision of pilonidal cyst History of back surgery x2 History of esophagogastroduodenoscopy (EGD) History of colonoscopy History of Mohs micrographic surgery for skin cancer History of cardiac catheterization 2000 - stent 2014 - stent H/O heart artery stent x 2 Status post insertion of drug-eluting stent into left anterior descending (LAD) artery for coronary artery disease (2014) S/P right coronary artery (RCA) stent placement (2000) Social History Smoking Status: Never smoker Second Hand Exposure: No; Do You Dip or Chew Tobacco: No; Hx Alcohol Use: Yes Alcohol type: beer Hx Substance Use: No Preferred Language: Surinamese Communication Ability: Effective Admitting Clerk Required: No Beliefs That Will Affect Care: None Current Living Situation: Spouse Feels Safe at Home: Yes Assistive Devices: None Review of Systems A total of 10 systems reviewed and were otherwise negative Physical Exam Vital Signs Vital Signs - 24 hr 08/22/23 09:38 08/22/23 09:54 08/22/23 09:55 Temperature 36.3 C L Temperature Source Temporal Artery Scan Pulse Rate 71 67 Pulse Rate [Finger] Respiratory Rate 16 Respiratory Effort / Characteristics Non-Labored Respiratory Depth Normal Respiratory Pattern Blood Pressure 133/74 Blood Pressure [Left Arm] Blood Pressure Mean 93 Blood Pressure Mean [Left Arm] Blood Pressure Position [Left Arm] Pulse Oximetry 99 Oxygen Delivery Method Room Air Room Air Oxygen Flow Rate 98 Sepsis Recent Fever Within 48 Hours No Sepsis New/Unexplained Change in Mental Status No Sepsis Action Taken by Nursing No Action Required 08/22/23 09:55 08/22/23 10:02 08/22/23 12:43 Temperature Temperature Source Pulse Rate 62 Pulse Rate [Finger] 64 57 L Respiratory Rate 13 15 16 Respiratory Effort / Characteristics Non-Labored Spontaneous Non-Labored Respiratory Depth Normal Normal Respiratory Pattern Regular Regular Blood Pressure Blood Pressure [Left Arm] 133/72 168/91 H Blood Pressure Mean Blood Pressure Mean [Left Arm] 92 116 Blood Pressure Position [Left Arm] Semi-fowlers Semi-fowlers Pulse Oximetry 98 98 97 Oxygen Delivery Method Room Air Room Air Room Air Oxygen Flow Rate Sepsis Recent Fever Within 48 Hours Sepsis New/Unexplained Change in Mental Status Sepsis Action Taken by Nursing 08/22/23 14:03 08/22/23 14:40 Temperature Temperature Source Pulse Rate 24 L Pulse Rate [Finger] 55 L Respiratory Rate 12 Respiratory Effort / Characteristics Non-Labored Spontaneous Respiratory Depth Normal Respiratory Pattern Blood Pressure Blood Pressure [Left Arm] Blood Pressure Mean Blood Pressure Mean [Left Arm] Blood Pressure Position [Left Arm] Pulse Oximetry 96 Oxygen Delivery Method Room Air Oxygen Flow Rate Sepsis Recent Fever Within 48 Hours Sepsis New/Unexplained Change in Mental Status Sepsis Action Taken by Nursing General: Well developed well nourished in no acute distress, breathing comfortably on room air. Normal speech HEENT: Normal cephalic atraumatic. Pupils are equal round and reactive to light. Extraocular movements are intact. Oropharynx is pink with moist mucous membranes. No swelling of the mouth lips or tongue. Neck: Supple with a midline trachea. No meningeal signs or stiffness, no JVD or bruits. No Stridor. Chest: Clear to auscultation bilaterally. No wheezes or rhonchi. No increased work of breathing. Heart: Regular rate and rhythm with some irregularity and what appears to be A- fib on the monitor without murmurs or gallops. Abdomen: Soft nontender, nondistended without rebound guarding or rigidity. Extremities: No cyanosis clubbing or edema. No calf tenderness or assymetry Spine/Back. Non tender to palpation. No CVA tenderness Skin: Good turgor without rashes. Neurologic exam: Cranial nerves two through 12 are intact. Motor and sensation are intact and symmetrical throughout. Medical Decision Making Differential Diagnosis A-fib, acute coronary syndrome, arrhythmia, electrolyte or metabolic abnormality, CHF, pulmonary disease Medical Records Attestation: I reviewed the patient's medical records. Home Medications Current Medication List: was personally reviewed by me Laboratory Data Attestation: I reviewed the patient's lab results. 08/22/23 09:53 08/22/23 09:53 Lab Results 08/22/23 08/22/23 08/22/23 Range/Units 09:53 11:37 14:11 WBC 7.66 (4.8-10.8) K/ul RBC 4.48 L (4.70-6.10) M/uL Hgb 13.7 L (14.0-18.0) g/dl Hct 38.8 L (42.0-52.0) % MCV 86.6 (80.0-100.0) fL MCH 30.6 (25.0-34.0) pg MCHC 35.3 (32.0-36.0) g/dL RDW Std Deviation 41.5 (36.4-46.3) fL RDW Coeff of Monster 13.5 (11.5-14.5) % Plt Count 134 (130-400) K/uL MPV 9.6 (9.4-12.4) fL Immature Gran % (Auto) 0.5 % Neut % (Auto) 61.4 % Lymph % (Auto) 24.7 % [place] % (Auto) 8.9 % Eos % (Auto) 4.0 % Baso % (Auto) 0.5 % Neut # (Auto) 4.70 (1.40-6.50) K/uL Lymph # (Auto) 1.89 (1.20-3.40) K/uL [place] # (Auto) 0.68 H (0.11-0.59) K/uL Eos # (Auto) 0.31 (0.00-0.50) K/uL Baso # (Auto) 0.04 (0.00-0.20) K/uL Immature Gran # (Auto) 0.04 (0.01-0.20) K/uL PT 10.4 (9.0-12.0) Seconds INR 1.0 (0.9-1.1) APTT 22 (21-31) Seconds PTT Ratio 0.8 Sodium 137 (136-145) mmol/L Potassium 4.2 (3.5-5.1) mmol/L Chloride 100 (98-107) mmol/L Carbon Dioxide 30 (21-32) mmol/L Anion Gap 7 (3-11) BUN 21 (6-23) mg/dl Creatinine 1.26 (0.6-1.4) mg/dl Est Cr Clr Drug Dosing 51.9 ml/min Est GFR ( Amer) 62.5 ml/min Est GFR (Non-Af Amer) 53.9 ml/min BUN/Creatinine Ratio 16.7 (10-20) Glucose 155 H (70-99(Fasting)) mg/dl Calcium 10.1 (8.6-10.3) mg/dl Total Bilirubin 0.7 (0.2-1.0) mg/dl AST 28 (13-39) U/L ALT 23 (7-52) U/L Alkaline Phosphatase 74 (34-104) U/L Troponin I High Sens 41.9 H 42.0 H 43.3 H (0-20) pg/ml Total Protein 7.6 (6.0-8.3) gm/dl Albumin 4.5 (3.4-5.0) gm/dl Globulin 3.1 (2.5-4.0) gm/dl Albumin/Globulin Ratio 1.5 (0.9-2) Lipase 33 (11-82) U/L TSH 2.025 (0.300-4.500) uIu/ml Imaging Data Attestation: I personally reviewed and interpreted this imaging study as follows: My Impression: Chest x-rayno acute infiltrate, failure, pneumothorax seen Radiologist's Impression: Chest X-Ray 08/22/23 09:54 XR chest 1V portable CLINICAL HISTORY: Chest pain, nonspecific TECHNIQUE: Single frontal radiograph of the chest was obtained. Comparison: Comparison is made to chest radiograph 03/07/2022 FINDINGS: No lines and tubes are seen. The cardiomediastinal silhouette is normal. The lungs are clear. No evidence of pleural effusion or pneumothorax. IMPRESSION: No acute chest disease. ACT 112: Negative or not required by law. Electronically signed by: Veto Ulloa M.D. 08/22/2023 10:24 AM ECG Data Attestation: I personally reviewed and interpreted this ECG as follows: Indication: + palpitations Rate (beats per minute): 74 Rhythm: + atrial fibrillation and + other (Poor baseline) ECG Intervals/blocks: + Normal QRS, + Normal QT and + Normal IN ECG [place]: + Normal ECG ST segments: + Normal ST segments ECG Findings: no PACs or no PVCs Comparison ECG Date: from (07/29/2022) Change: the following changes noted (A-fib has replaced normal sinus) MDM Narrative This patient comes in as described above. He was placed on a detective homicide squad room A4. He says his heart feels off. he is nontachycardic and has stable vital signs. His EKG is poor baseline but what appears to be A-fib looking back through his chart he does have a history of recurrent A-fib and there is an EKG from 2015 which shows A-fib. I reviewed the most recent cardiology note that talks about this as well. His EKG does not show any ischemic changes. Chest x- ray and multiple blood testing was obtained he was reassessed frequently. Chest x-ray shows no congestive heart failure, pneumonia, CHF his initial troponin was elevated in the 40s. He has no significant electrolyte or metabolic abnormality second troponin is also in the 40s. Talk to patient at length. Reviewing his chart he does have history of A-fib however he does not recall this and is on no blood thinners. He denies that he remembers ever having irregular heartbeat. I do think he needs to be admitted/observed given his episode where he woke up with heartburn and potential cardiac symptoms to have a cardiac rule out and workup on telemetry. I have discussed the case with Dr. Alicia and she saw the patient in the ER and will admit/observe him for these measures Continuous detective homicide squad: Orders were placed in the EMR for continuous cardiac monitoring: Upon my evaluation patient was noted to be in rate controlled A-fib at a rate of 60 Impression & Plan Chest pain, Palpitations, A-fib, History of CAD (coronary artery disease) Discharge Plan Visit Data Chief Complaint: Arrhythmia/Palpitations Stated Complaint: POSSIBLE AFIB?, ED Provider: Johnnie Mahan Discharge Problem: Chest pain, Palpitations, A-fib, History of CAD (coronary artery disease) Forms Stand Alone Forms: My [facility] [employer] Prescriptions Prescriptions: No Action acetaminophen [Tylenol] 325 mg tablet 325 mg PO QID PRN (Reason: Pain) ibuprofen 800 mg tablet 800 mg PO Q8H PRN (Reason: Pain) aspirin [Adult Low Dose Aspirin] 81 mg tablet,delayed release (DR/EC) 81 mg PO QPM Prilosec OTC 20 mg tablet,delayed release (DR/EC) 20 mg PO QPM coenzyme Q10 [Co Q-10] 10 mg capsule 10 mg PO QPM multivitamin with iron tablet 1 tab PO QAM clonidine 0.3 mg/24 hr patch weekly 0.3 mg transdermal WEEKLY Rx Instructions: Wednesday Evenings triamterene-hydrochlorothiazid [Dyazide] 37.5-25 mg capsule 1 cap PO QAM magnesium oxide 400 mg (241.3 mg magnesium) tablet 400 mg PO QAM clonidine HCl 0.1 mg tablet See Rx Instructions .ROUTE .COMPLEX Rx Instructions: Take 0.2mg by mouth in the morning and 0.1mg by mouth in the evening ascorbate calcium (vitamin C) 500 mg tablet 500 mg PO QAM nitroglycerin 0.4 mg tablet, sublingual 0.4 mg SL Q5M PRN (Reason: chest pain) Qty: 25 5RF Rx Instructions: PLACE 1 TAB UNDER TONGUE EVERY 5 MINS FOR UP TO 3 DOSES PRN CHEST PAIN. CALL 911 IF PAIN PERSISTS lorazepam 1 mg tablet 1 mg PO DAILY PRN (Reason: anxiety) Qty: 90 0RF atorvastatin 40 mg tablet 40 mg PO QPM Qty: 90 3RF sildenafil 100 mg tablet 50 - 100 mg PO DAILY PRN (Reason: sexual activity) Qty: 6 8RF metoprolol succinate 50 mg tablet extended release 24 hr 50 mg PO BID Qty: 180 3RF cyanocobalamin (vitamin B-12) [Vitamin B-12] 1,000 mcg Tablet 1,000 mcg PO 2XWK Rx Instructions: Tu/Wed Referrals Referrals: Justo Xavier DO [Primary Care Provider] - Discharge Problem: Chest pain Qualifiers: Chest pain type: precordial pain Qualified Code(s): R07.2 - Precordial pain A-fib Qualifiers: Atrial fibrillation type: unspecified Qualified Code(s): I48.91 - Unspecified atrial fibrillation
[2023-08-22 10:20] LABS: Basophils # (auto) 0.04 K/uL (0.00-0.20); Basophils % (auto) 0.5 %; Eosinophils # (auto) 0.31 K/uL (0.00-0.50); Hematocrit (blood only) 38.8 % (42.0-52.0); Hemoglobin 13.7 g/dl (14.0-18.0); Immature Granulocytes # (auto) 0.04 K/uL (0.01-0.20); Immature Granulocytes % (auto) 0.5 %; Lymphocytes # (auto) 1.89 K/uL (1.20-3.40); Lymphocytes % (auto) 24.7 %; Mean Corpuscular Hemoglobin 30.6 pg (25.0-34.0); Mean Corpuscular Hgb Conc 35.3 g/dL (32.0-36.0); Mean Corpuscular Volume 86.6 fL (80.0-100.0); Mean Platelet Volume 9.6 fL (9.4-12.4); Monocytes # (auto) 0.68 K/uL (0.11-0.59); Monocytes % (auto) 8.9 %; Neutrophils % (auto) 61.4 %; Platelet Count 134 K/uL (130-400); RDW Coefficient of Variation 13.5 % (11.5-14.5); RDW Standard Deviation 41.5 fL (36.4-46.3); Red Blood Count 4.48 M/uL (4.70-6.10); White Blood Count 7.66 K/ul (4.8-10.8)
--- NOTE | 2023-08-22 10:25 | XRay Report ---
XR chest 1V portable CLINICAL HISTORY: Chest pain, nonspecific TECHNIQUE: Single frontal radiograph of the chest was obtained. Comparison: Comparison is made to chest radiograph 03/07/2022 FINDINGS: No lines and tubes are seen. The cardiomediastinal silhouette is normal. The lungs are clear. No evid ence of pleural effusion or pneumothorax. IMPRESSION: No acute chest disease. ACT 112: Negative or not required by law. Electronically signed by: Veto Ulloa M.D. 08/22/2023 10:24 AM
[2023-08-22 10:31] LABS: Albumin Globulin Ratio 1.5 (0.9-2); Albumin Level 4.5 gm/dl (3.4-5.0); BUN Creatinine Ratio 16.7 (10-20); Bilirubin,Total 0.7 mg/dl (0.2-1.0); Calcium 10.1 mg/dl (8.6-10.3); Creatinine Clr Calc Pharmacy 51.9 ml/min; Est GFR (African American) 62.5 ml/min; Est GFR (Non-African American) 53.9 ml/min; Globulin 3.1 gm/dl (2.5-4.0); Potassium 4.2 mmol/L (3.5-5.1); Total Protein 7.6 gm/dl (6.0-8.3)
[2023-08-22 10:36] LABS: Troponin I High Sensitivity 41.9 pg/ml (0-20)
[2023-08-22 10:37] LABS: Partial Thromboplastin Ratio 0.8; Partial Thromboplastin Time 22 Seconds (21-31); Prothrombin Time 10.4 Seconds (9.0-12.0)
[2023-08-22 10:46] LABS: Thyroid Stimulating Hormone 2.025 uIu/ml (0.300-4.500)
[2023-08-22] MEDS ORDERED: ACETAMINOPHEN 325 MG TAB PO PRN ×2 (13:59→17:57)
[2023-08-22] MEDS ORDERED: ONDANSETRON INJ 2 MG/ML 2 ML VIAL IV PRN (13:59)
[2023-08-22] MEDS ORDERED: MAGNESIUM HYDROXIDE SUSP 30 ML UDC PO PRN (13:59)
[2023-08-22] MEDS ORDERED: MELATONIN 3 MG TAB PO PRN (13:59)
[2023-08-22] MEDS ORDERED: POLYETHYLENE (MIRALAX) 17 GM PACK PO PRN (13:59)
--- NOTE | 2023-08-22 14:27 | History & Physical Report ---
Date of Service August 22, 2023 Assessment & Plan (1) Paroxysmal A-fib: Plan: paroxysmal Afib currently in Afib rate controlled start Eliquis consult cardiology monitor on tele (2) HTN (hypertension): Plan: on Metoprolol on Clonidine as well monitor BP (3) CAD (coronary artery disease): Plan: history of CAD, cardiac stents repeat trop recent ECHO in July monitor on tele consult cardilogy (4) Dyslipidemia: Plan: elevated triglycerides continue statins (5) Alcohol use: Plan: daily alcohol use monitor for withdrawal History of Present Illness Chief Complaint: irregular heart beat Primary Care Provider: Justo Xavier DO 78-year-old male has history of coronary artery disease, 2 stents in 2016, paroxysmal recurrent A-fib, comes in after having an episode overnight around 130 when he felt like his heart was different. He felt like he had heartburn he took some Tums he denies any chest pain shortness of breath or dyspnea on exertion he does have an ellen on his phone and he measured his heartbeat it was in the 60s but seems somewhat irregular. He had no lightheadedness or dizziness. He does take a baby aspirin but no blood thinners. In ER he is in Afib in ER , denies chest pain or SOB. He follows with dr Mensah. ECHO in July EF 60-65 %, the left atrium is moderately dilated. Patient was not prescribed blood thinners before. Reports chronic dizziness, reports drinking alcohol daily. Allergies Allergy/AdvReac Type Severity Reaction Status Date / Time irbesartan Allergy Intermediate myalgia, Verified 08/22/23 11:46 diarrhea acetaminophen Allergy Unknown itching Verified 08/22/23 11:46 cat dander Allergy Unknown asthma Verified 08/22/23 11:46 related sx oxycodone Allergy Unknown itching Verified 08/22/23 11:46 latex Allergy itching, Verified 08/22/23 11:46 redness lisinopril AdvReac Mild cough Verified 08/22/23 11:46 Home Medications Medication Instructions Recorded Confirmed Type aspirin 81 mg tablet,delayed 81 mg PO QPM 11/23/18 08/22/23 History release (Adult Low Dose Aspirin) clonidine 0.3 mg/24 hr weekly 0.3 mg transdermal WEEKLY 11/23/18 08/22/23 History transdermal patch coenzyme Q10 10 mg capsule (Co 10 mg PO QPM 11/23/18 08/22/23 History Q-10) magnesium oxide 400 mg (241.3 mg 400 mg PO QAM 11/23/18 08/22/23 History magnesium) tablet multivitamin with iron 1 tab PO QAM 11/23/18 08/22/23 History omeprazole magnesium 20 mg 20 mg PO QPM 11/23/18 08/22/23 History tablet,delayed release (Prilosec OTC) triamterene 37.5 1 cap PO QAM 11/23/18 08/22/23 History mg-hydrochlorothiazide 25 mg capsule (Dyazide) metoprolol succinate 50 mg 50 mg PO BID #180 tabs 08/03/19 08/22/23 Rx tablet,extended release 24 hr clonidine HCl 0.1 mg tablet See Rx Instructions .Route 12/05/19 08/22/23 History .COMPLEX blood pressure acetaminophen 325 mg tablet 325 mg PO QID PRN Pain 08/21/21 08/22/23 History (Tylenol) ascorbate calcium (vitamin C) 500 500 mg PO QAM 07/29/22 08/22/23 History mg tablet ibuprofen 800 mg tablet 800 mg PO Q8H PRN Pain 07/29/22 08/22/23 History nitroglycerin 0.4 mg sublingual 0.4 mg sublingual Q5M PRN chest 01/05/23 08/22/23 Rx tablet pain #25 tabs lorazepam 1 mg tablet 1 mg PO DAILY PRN anxiety #90 tabs 02/25/23 08/22/23 Rx atorvastatin 40 mg tablet 40 mg PO QPM #90 tabs 05/28/23 08/22/23 Rx sildenafil 100 mg tablet 50 - 100 mg (0.5 - 1 x 100 mg) PO 07/02/23 08/22/23 Rx DAILY PRN sexual activity #6 tabs cyanocobalamin (vitamin B-12) 1,000 mcg PO 2XWK 08/22/23 08/22/23 History 1,000 mcg tablet (Vitamin B-12) Past Med/Surg History Problem List (Updated 08/22/23 @ 10:01 by Johnnie Mahan MD) Alcohol use A-fib (Acute) Numbness and tingling of both feet Weakness of lower extremity Balance problem Preoperative cardiovascular examination Myofascial pain Sacroiliitis Paroxysmal A-fib Benign keratosis Sensorineural hearing loss (SNHL) of both ears Vertigo Insomnia HTN (hypertension) Hyperglycemia Erectile dysfunction Elevated transaminase level Dyslipidemia CAD (coronary artery disease) Palpitations (Acute) Near syncope Hypomagnesemia H/O prior ablation treatment History of SCC (squamous cell carcinoma) of skin Mitral regurgitation Fatty liver GERD (gastroesophageal reflux disease) Medical History Atrial fibrillation per records. pt denies hx arrhythmia. History of gout HLD (hyperlipidemia) HTN (hypertension) Cardiac murmur CAD (coronary artery disease) follows with Dr. Mensah. History of myocardial infarction 2000 Surgical History History of hernia repair History of excision of pilonidal cyst History of back surgery x2 History of esophagogastroduodenoscopy (EGD) History of colonoscopy History of Mohs micrographic surgery for skin cancer History of cardiac catheterization 2000 - stent 2014 - stent H/O heart artery stent x 2 Status post insertion of drug-eluting stent into left anterior descending (LAD) artery for coronary artery disease (2014) S/P right coronary artery (RCA) stent placement (2000) Social History Smoking Status: Never smoker Second Hand Exposure: No; Do You Dip or Chew Tobacco: No; Hx Alcohol Use: Yes Alcohol type: beer Hx Substance Use: No Preferred Language: Turkmen Communication Ability: Effective Strip Picker Required: No Beliefs That Will Affect Care: None Current Living Situation: Spouse Feels Safe at Home: Yes Assistive Devices: None Review of Systems Review of Systems: All systems reviewed & are unremarkable except as noted in HPI & below Physical Exam Physical Exam: head atraumatic, normocephalic neck supple, no JVD chest CTA b/l heart irregularly irregular, no murmurs abdomen soft, NT, ND, BS present extremities no clubbing, no cyanosis neuro AAO times 3 Results & Data Results & Data Vital Signs (Past 12 Hours) Vital Signs Temp Pulse Pulse Resp BP BP Pulse Ox 08/22/23 14:03 24 L 08/22/23 12:43 57 L 16 168/91 H 97 08/22/23 10:02 62 15 98 08/22/23 09:55 64 13 133/72 98 08/22/23 09:55 08/22/23 09:54 67 08/22/23 09:38 36.3 C L 71 16 133/74 99 O2 Del Method O2 Flow Rate 08/22/23 14:03 08/22/23 12:43 Room Air 08/22/23 10:02 Room Air 08/22/23 09:55 Room Air 08/22/23 09:55 Room Air 98 08/22/23 09:54 08/22/23 09:38 Room Air Laboratory Results Abnormal lab results 08/22/23 08/22/23 Range/Units 09:53 11:37 RBC 4.48 L (4.70-6.10) M/uL Hgb 13.7 L (14.0-18.0) g/dl Hct 38.8 L (42.0-52.0) % [place] # (Auto) 0.68 H (0.11-0.59) K/uL Glucose 155 H (70-99(Fasting)) mg/dl Troponin I High Sens 41.9 H 42.0 H (0-20) pg/ml Diagnostic Findings Chest X-Ray 08/22/23 09:54 XR chest 1V portable CLINICAL HISTORY: Chest pain, nonspecific TECHNIQUE: Single frontal radiograph of the chest was obtained. Comparison: Comparison is made to chest radiograph 03/07/2022 FINDINGS: No lines and tubes are seen. The cardiomediastinal silhouette is normal. The lungs are clear. No evidence of pleural effusion or pneumothorax. IMPRESSION: No acute chest disease. ACT 112: Negative or not required by law. Electronically signed by: Veto Ulloa M.D. 08/22/2023 10:24 AM ECG Additional Comments: EKG Afib Code Status & VTE Plan Code Status full PG Care Time/CCT Total # of Minutes Spent Total Time Spent with Patient: Total time spent is greater than 50% in coordination of care (as documented) at patient's floor/unit and/or counseling patient: Coding Level of Care Code 88807 INT INP/OBS CARE 3/75MIN Diagnoses Paroxysmal A-fib I48.0 HTN (hypertension) I10 CAD (coronary artery disease) I25.10 Dyslipidemia E78.5 Alcohol use Z78.9
[2023-08-22 16:38] LABS: Folate (Folic Acid),Ser orPlas > 22.30 ng/ml (>5.38)
[2023-08-22 16:39] LABS: Vitamin B12 300 pg/ml (180-914)
[2023-08-22] MEDS ORDERED: NITROGLYCERIN SL 0.4 MG/TAB TAB SL PRN (17:57)
[2023-08-22] MEDS ORDERED: LORazepam 1 MG TAB PO PRN (17:57)
[2023-08-22] MEDS: METOPROLOL TARTRATE 25 MG TAB PO SCH (20:52)
[2023-08-22] MEDS: PANTOprazole 40 MG TAB PO SCH (20:52)
[2023-08-22] MEDS: ASPIRIN 81 MG ECTAB PO SCH (20:52)
[2023-08-22] MEDS: APIXABAN 5 MG TABLET PO SCH (20:52)
[2023-08-22] MEDS: ATORVASTATIN 40 MG TAB PO SCH (20:53)
[2023-08-22] MEDS ORDERED: APIXABAN 5 MG TABLET PO SCH (21:00)
[2023-08-23] MEDS: cloNIDine HCL 0.1 MG TAB PO PRN (07:55)
[2023-08-23] MEDS: TRIAMTERENE/HCTZ 37.5/25MG TAB PO SCH (07:56)
[2023-08-23] MEDS: MAGNESIUM OXIDE 400 MG TAB PO SCH (07:57)
[2023-08-23] MEDS: CEROVITE ADV FORMULA TAB PO SCH (07:57)
[2023-08-23] MEDS ORDERED: ATORVASTATIN 40 MG TAB PO SCH (09:00)
[2023-08-23 10:38] LABS: BUN Creatinine Ratio 17.1 (10-20); Calcium 10.2 mg/dl (8.6-10.3); Creatinine Clr Calc Pharmacy 53.2 ml/min; Est GFR (African American) 64.3 ml/min; Est GFR (Non-African American) 55.5 ml/min
[2023-08-23 10:50] LABS: Troponin I High Sensitivity 21.1 pg/ml (0-20)
--- NOTE | 2023-08-23 12:18 | Discharge Summary ---
Discharge Summary Date of Service August 23, 2023 Principal Dx & Hospital Course #1 = Principal Diagnosis (1) Paroxysmal A-fib: Arrived in Afib in 60-70s, spontanelously converted to NSR around 2100 on 08/21 Start Eliquis 5mg BID Continue Metoprolol Suc 50mg BID Recent echo 07/2023 Patient to discharge home today with cardiology follow up tomorrow, 08/23 (2) HTN (hypertension): Continue home Metoprolol and Clonidine (3) CAD (coronary artery disease): history of CAD, cardiac stents Troponin peak 43, and now down trending. Do not suspect any ischemic changes on ECG recent ECHO in July (4) Dyslipidemia: elevated triglycerides continue statins (5) Alcohol use: daily alcohol use monitor for withdrawal - no signs of withdrawal during inpatient stay Plan Dispo: discharge home with and cardiology follow up 08/23 Notes For Next Care Provider Patient presented after heartburn and palpitations that improved with Tums and SL nitro but was still having irregular heart rates on his phone ellen. Found to be in afib, rates 60-70s, converted to NSR spontaneously. Started on Eliquis. Continue Metoprolol. Not seen by cardiology during admission but has cardiology follow up 08/[address] Mensah Medication Changes From Visit Start Eliquis 5mg BID STOP Ibupofen. Admission HPI Per Admitting Provider 78-year-old male has history of coronary artery disease, 2 stents in 2016, paroxysmal recurrent A-fib, comes in after having an episode overnight around 130 when he felt like his heart was different. He felt like he had heartburn he took some Tums he denies any chest pain shortness of breath or dyspnea on exertion he does have an ellen on his phone and he measured his heartbeat it was in the 60s but seems somewhat irregular. He had no lightheadedness or dizziness. He does take a baby aspirin but no blood thinners. In ER he is in Afib in ER , denies chest pain or SOB. He follows with dr Mensah. ECHO in July EF 60-65 %, the left atrium is moderately dilated. Patient was not prescribed blood thinners before. Reports chronic dizziness, reports drinking alcohol daily. Discharge Exam General: NAD, VS as above Resp: normal respiratory effort, lungs clear to auscultation CV: RRR, no murmur, Abd: normal bowel sounds, non tender, no hepatosplenomegaly Extremities: Moves all extremities, no edema Neuro: A&O x3, Skin: intact, no lesions noted Updated Medication List Medication Instructions Recorded Confirmed Type aspirin 81 mg tablet,delayed 81 mg PO QPM 11/23/18 08/22/23 History release (Adult Low Dose Aspirin) clonidine 0.3 mg/24 hr weekly 0.3 mg transdermal WEEKLY 11/23/18 08/22/23 History transdermal patch coenzyme Q10 10 mg capsule (Co 10 mg PO QPM 11/23/18 08/22/23 History Q-10) magnesium oxide 400 mg (241.3 mg 400 mg PO QAM 11/23/18 08/22/23 History magnesium) tablet multivitamin with iron 1 tab PO QAM 11/23/18 08/22/23 History omeprazole magnesium 20 mg 20 mg PO QPM 11/23/18 08/22/23 History tablet,delayed release (Prilosec OTC) triamterene 37.5 1 cap PO QAM 11/23/18 08/22/23 History mg-hydrochlorothiazide 25 mg capsule (Dyazide) metoprolol succinate 50 mg 50 mg PO BID #180 tabs 08/03/19 08/22/23 Rx tablet,extended release 24 hr clonidine HCl 0.1 mg tablet See Rx Instructions .Route 12/05/19 08/22/23 History .COMPLEX blood pressure acetaminophen 325 mg tablet 325 mg PO QID PRN Pain 08/21/21 08/22/23 History (Tylenol) ascorbate calcium (vitamin C) 500 500 mg PO QAM 07/29/22 08/22/23 History mg tablet nitroglycerin 0.4 mg sublingual 0.4 mg sublingual Q5M PRN chest 01/05/23 08/22/23 Rx tablet pain #25 tabs lorazepam 1 mg tablet 1 mg PO DAILY PRN anxiety #90 tabs 02/25/23 08/22/23 Rx atorvastatin 40 mg tablet 40 mg PO QPM #90 tabs 05/28/23 08/22/23 Rx sildenafil 100 mg tablet 50 - 100 mg (0.5 - 1 x 100 mg) PO 07/02/23 08/22/23 Rx DAILY PRN sexual activity #6 tabs cyanocobalamin (vitamin B-12) 1,000 mcg PO 2XWK 08/22/23 08/22/23 History 1,000 mcg tablet (Vitamin B-12) apixaban 5 mg tablet (Eliquis) 5 mg PO BID #60 tabs 08/23/23 Rx Hospital Stay Data Consultations 08/22/23 12:50 ED Decision to Admit Stat Diagnostic Imagining Performed Chest X-Ray 08/22/23 09:54 XR chest 1V portable CLINICAL HISTORY: Chest pain, nonspecific TECHNIQUE: Single frontal radiograph of the chest was obtained. Comparison: Comparison is made to chest radiograph 03/07/2022 FINDINGS: No lines and tubes are seen. The cardiomediastinal silhouette is normal. The lungs are clear. No evidence of pleural effusion or pneumothorax. IMPRESSION: No acute chest disease. ACT 112: Negative or not required by law. Electronically signed by: Veto Ulloa M.D. 08/22/2023 10:24 AM Pending Results Patient Have Any Pending Studies at Discharge: No Discharge Instructions Given to Patient (Per Discharging Provider) Mr. Escobedo, Kasi were hospitalized after having an episode of atrial fibrillation. Because of this you were started on Eliquis, a blood thinner, as afib puts you at higher risk for blood clots. You will take this medication twice a day, additional information about Eliquis are attached below. You should NOT take ibupofren/aleve/motrin while taking this. Tylenol is okay. Thankfully you converted to normal sinus rhythm last night and have maintained this. You should keep your appointment with Dr. Mensah tomorrow to discuss long-term plans on managing for afib. Take your medications as instructed; do not skip a dose of your medicines. Make sure all of your doctors know every medicine you are taking (including [id number] medicines, vitamins, and supplements). Call your primary care provider before taking any new medicines (including over- the-counter medicines, vitamins, and supplements), because some of these may interact with your current medications, or may make your symptoms worse. Tell your primary care provider if you cannot afford your medications. Activity: You can do normal everyday activities as your body allows. Take rest breaks if you feel tired. Do not overexert. Stop activity if you have pain, shortness of breath or feel dizzy. Follow-up appointments: Make an appointment with your primary care physician within one week of discharge. A copy of this summary will be sent to them. Every time you see your primary care physician, or any other doctor, bring your medication list, and a list of questions. CONTACT YOUR PRIMARY CARE PROVIDER if you experience any of the following: Shortness of breath or difficulty breathing Fevers or chills Feeling tired with normal activity or experiencing dizziness or fainting Difficulty following your treatment plan, or difficulty taking medications CALL 911 OR GO TO THE EMERGENCY DEPARTMENT if you experience any of the following: Severe abdominal pain or nausea/vomiting Severe chest pain, or chest pain that radiates (moves) to your jaw or arm Sudden, severe shortness of breath or difficulty breathing Thank you for allowing us to participate in your care. --------- Here are some guidelines about taking Eliquis: XARELTO may cause serious side effects, including: Increased risk of blood clots if you stop taking Eliquis.Do not stop taking Eliquis without talking to your doctor who prescribes it for you. Stopping Eliquis increases your risk of having a stroke. Increased risk of bleeding. Eliquis can cause bleeding which can be serious and may lead to . This is because Eliquis is a blood thinner medicine (anticoagulant) that lowers blood clotting. During treatment with Eliquis you are likely to bruise more easily, and it may take longer for bleeding to stop. * If you ever cannot get bleeding to stop please report to the ER * If you have a bruise that is large/painful or swollen you should also be seen by a medical provider Call your doctor or get medical help right away if you or your child develop any of these signs or symptoms of bleeding: unexpected bleeding or bleeding that lasts a long time, such as: * nose bleeds that happen often * unusual bleeding from the gums * bleeding that is severe or you cannot control * red, pink or brown urine * bright red or black stools (looks like tar) * cough up blood or blood clots * vomit blood or your vomit looks like coffee grounds If you have a fall and hit your head, please come to the ER and get checked out. Being on a blood thinner increases your risk of brain bleeding with falls. Avoid high risk activities, such as: * standing on tall ladders * riding motorcyles * anything where you are high risk for falls or trauma Avoid taking NSAIDs (pain medication) while you are taking a blood thinner. This includes: * Ibuprofen, Aleve Advil, Naproxen. * If you are ever unsure you can ask your doctor or pharmacist. * Tylenol is SAFE to take. If you have any new or worsening chest pain or shortness of breath please return to the ER. It was our pleasure taking care of you. Total Time Total Time Spent Total Time Spent (In Minutes): Time spend day of discharge 35 minutes including direct patient care, medication reconciliation, documentation, review of labs and images, and coordination of care. Discussed case with Dr. Hernández, Cardiology. Supervising Physician Co-Signing Physician Notes PA Supervision Note: I did not personally see or examine the patient today, but I verified all penny points of SALUD Echavarria's assessment and plan with the following exceptions/additions: Pt was discharged to home by nursing before I was able to see him. Coding Level of Care Code 77330 INP/OBS DISCH >30 MIN Diagnoses Paroxysmal A-fib I48.0 HTN (hypertension) I10 CAD (coronary artery disease) I25.10 Dyslipidemia E78.5 Alcohol use Z78.9
[2023-08-24] MEDS ORDERED: CYANOCOBALAMIN (B-12) 500 MCG TABLET PO SCH (09:00)
--- NOTE | 2023-08-24 21:59 | Electrocardiogram Report ---
Test Reason : Blood Pressure : / mmHG Vent. Rate : 074 BPM Atrial Rate : 000 BPM P-R Int : 000 ms QRS Dur : 102 ms QT Int : 406 ms P-R-T Axes : 000 005 043 degrees QTc Int : 450 ms Poor data quality, interpretation may be adversely affected Atrial fibrillation Inferior infarct (cited on or before 07-JAN-2015) Abnormal ECG When compared with ECG of 29-JUL-2022 15:22, Atrial fibrillation has replaced Sinus rhythm Confirmed by Vineet Abbott ([id number]) on 08/24/2023 9:59:45 PM Referred By: REFERRED SELF Confirmed By:Vineet Abbott
--- NOTE | 2023-08-25 05:26 | Electrocardiogram Report ---
Test Reason : Blood Pressure : / mmHG Vent. Rate : 049 BPM Atrial Rate : 000 BPM P-R Int : 000 ms QRS Dur : 092 ms QT Int : 440 ms P-R-T Axes : 000 -04 026 degrees QTc Int : 397 ms Atrial fibrillation with slow ventricular response Inferior infarct (cited on or before 07-JAN-2015) Abnormal ECG When compared with ECG of 22-AUG-2023 09:44, Vent. rate has decreased BY 25 BPM QT has shortened Confirmed by Vineet Abbott ([id number]) on 08/25/2023 5:26:26 AM Referred By: REFERRED SELF Confirmed By:Vineet Abbott
== END 2023-08-23 12:35 | disposition home or self-care (01) | DRG 310 ==
LOC: ED 09:35 → SUATTDRO 14:09 → INTOOBSV 14:09 → EDINP 14:09

== ENCOUNTER 2024-04-11 14:00 | Observation (INO) ==
--- NOTE | 2024-04-11 14:09 | ED Triage Note ---
Date of Service April 11, 2024 Provider in Triage Author: Rasheeda Eastman History of Present Illness This patient was briefly evaluated while in triage. An abbreviated physical exam was performed. This patient is a 79-year-old Male who presents to the ED for evaluation Hx of HTN, CAD, afib on Eliquis alcohol abuse x 60 years last ETOH 2200 last evening (whiskey) having tremors, off balance/frequent falls denies hx of seizures with alcohol cessation sent by PCP for inpatient detox never gone to rehab has been able to stop drinking on his on for about a month, then resumes Physical Exam GENERAL: NAD, tremulous, hypertensive CARDIOVASCULAR: RRR RESPIRATORY: CTA Initial orders for labs and / or imaging were placed and patient was placed in the waiting area until a bed is available. Please see further documentation for the full ED course.
[2024-04-11 14:55] LABS: Basophils # (auto) 0.04 K/uL (0.00-0.20); Basophils % (auto) 0.5 %; Eosinophils % (auto) 1.3 %; Hematocrit (blood only) 39.7 % (42.0-52.0); Hemoglobin 14.2 g/dl (14.0-18.0); Immature Granulocytes # (auto) 0.04 K/uL (0.01-0.20); Immature Granulocytes % (auto) 0.5 %; Lymphocytes # (auto) 1.24 K/uL (1.20-3.40); Lymphocytes % (auto) 16.4 %; Mean Corpuscular Hemoglobin 30.3 pg (25.0-34.0); Mean Corpuscular Hgb Conc 35.8 g/dL (32.0-36.0); Mean Corpuscular Volume 84.6 fL (80.0-100.0); Mean Platelet Volume 8.5 fL (9.4-12.4); Monocytes # (auto) 0.69 K/uL (0.11-0.59); Monocytes % (auto) 9.1 %; Neutrophils # (auto) 5.44 K/uL (1.40-6.50); Neutrophils % (auto) 72.2 %; Platelet Count 161 K/uL (130-400); RDW Coefficient of Variation 12.9 % (11.5-14.5); Red Blood Count 4.69 M/uL (4.70-6.10); White Blood Count 7.55 K/ul (4.8-10.8)
[2024-04-11 15:09] LABS: Albumin Globulin Ratio 1.6 (0.9-2); Albumin Level 5.1 gm/dl (3.4-5.0); BUN Creatinine Ratio 16.3 (10-20); Bilirubin,Total 0.8 mg/dl (0.2-1.0); Calcium 10.7 mg/dl (8.6-10.3); Creatinine Clr Calc Pharmacy 62.6 ml/min; Globulin 3.1 gm/dl (2.5-4.0); Potassium 3.6 mmol/L (3.5-5.1); Total Protein 8.2 gm/dl (6.0-8.3)
[2024-04-11] MEDS: FOLIC ACID 1 MG in SYRINGE 9.8 ML IV ONE (15:24)
[2024-04-11] MEDS: THIAMINE HCL 100 MG in SYRINGE 9 ML IV ONE (15:25)
--- NOTE | 2024-04-11 15:34 | Emergency Department Note ---
Impression & Plan Alcohol withdrawal ED Provider Note NAME: STEVE BULLARD AGE: 79 SEX: M : 1945 ARRIVES VIA: Walk-In INFORMANT: Patient, ED PROVIDER(S): Sarahy Alvarado MD CHIEF COMPLAINT: Alcohol withdrawal HPI: This is an 79-year-old male present for alcohol withdrawal. Patient states that he has drank for multiple years, numerous whiskeys per day. He drinks about 1 handle of whiskey per week. He notes that he has not gone 1 day without drinking in multiple years. No nausea vomiting at this time. He is having tremors and difficulty walking. He is on multiple falls previously but none recently. He notes current shakes. He notes slight anxiety. No nausea vomiting diarrhea. No previous seizures ROS: See above HPI for pertinent positives & negatives. A total of 10 systems reviewed and were otherwise negative. PAST MEDICAL HISTORY: See Below PAST SURGICAL HISTORY: See Below FAMILY HISTORY: See Below SOCIAL HISTORY: See Below HOME MEDICATIONS: See Below ALLERGIES: See Below VITALS: See Below PHYSICAL EXAMINATION: General:, tremulous Head: Normocephalic and atraumatic Eyes: Normal inspection, extraocular muscles intact Ear, nose, throat: Normal external exam Neck: Normal range of motion Respiratory: lungs clear to auscultation bilaterally Cardiovascular: Regular rate/rhythm, no murmur GI: soft, nontender, no guarding or rebound Extremities: nontender, moves all extremities Neuro: The patient awake and alert, appropriately conversive, no focal deficits, symmetric faces Skin: Warm, dry, and intact MEDICAL DECISION MAKING: This is an 79-year-old male presenting for alcohol withdrawal. Patient was sent here by his primary care physician/resident clinic. -No leukocytosis or anemia. Slight hyponatremia to difference since hypochloremia. Alcohol level negative -As patient is tremulous, will give Ativan at this. -Discussed with Dr. Becker, will evaluate the patient for admission Differential diagnosis: Alcohol withdrawal, seizure, follow-up Independent History obtained from: Diagnostics interpreted by me: ECG: ECG independently interpreted by me with normal sinus rhythm, rate of 70, normal axis, normal MT, normal QRS, normal QTc, no ST segment elevations consistent with STEMI criteria Cardiac Monitoring: An order was placed for continuous cardiac monitoring. The monitor shows a rate of 70 with sinus rhythm. Past Med/Surg History Problem List (Updated 04/11/24 @ 18:10 by Sarahy Alvarado MD) Alcohol withdrawal (Acute) Alcohol withdrawal Alcohol abuse Stented coronary artery Dyslipidemia HTN (hypertension) Paroxysmal A-fib CAD (coronary artery disease) Idiopathic polyneuropathy Numbness and tingling of both feet Weakness of lower extremity Balance problem Preoperative cardiovascular examination Myofascial pain Sacroiliitis Benign keratosis Sensorineural hearing loss (SNHL) of both ears Vertigo Insomnia Hyperglycemia Erectile dysfunction Elevated transaminase level Near syncope Hypomagnesemia H/O prior ablation treatment History of SCC (squamous cell carcinoma) of skin Mitral regurgitation Fatty liver GERD (gastroesophageal reflux disease) Medical History History of CAD (coronary artery disease) Alcohol use Paroxysmal A-fib HTN (hypertension) Dyslipidemia CAD (coronary artery disease) Atrial fibrillation History of gout HLD (hyperlipidemia) HTN (hypertension) Cardiac murmur CAD (coronary artery disease) History of myocardial infarction Surgical History History of hernia repair History of excision of pilonidal cyst History of back surgery History of esophagogastroduodenoscopy (EGD) History of colonoscopy History of Mohs micrographic surgery for skin cancer History of cardiac catheterization H/O heart artery stent Status post insertion of drug-eluting stent into left anterior descending (LAD) artery for coronary artery disease (2014) S/P right coronary artery (RCA) stent placement (2000) Social History Smoking Status: Never smoker Tobacco Type: Cigarettes Second Hand Exposure: No; Do You Dip or Chew Tobacco: No; Hx Alcohol Use: Yes Alcohol type: beer Hx Substance Use: No Preferred Language: Croatian Communication Ability: Effective Landing Man Required: No Beliefs That Will Affect Care: None Current Living Situation: Spouse Feels Safe at Home: Yes Assistive Devices: None Allergies Allergies Allergy/AdvReac Type Severity Reaction Status Date / Time irbesartan Allergy Intermediate myalgia, Verified 02/10/24 14:27 diarrhea acetaminophen Allergy Unknown itching Verified 02/10/24 14:27 cat dander Allergy Unknown asthma Verified 02/10/24 14:27 related sx oxycodone Allergy Unknown itching Verified 02/10/24 14:27 latex Allergy itching, Verified 02/10/24 14:27 redness lisinopril AdvReac Mild cough Verified 02/10/24 14:27 Home Meds Home Medications Medication Instructions Recorded Confirmed clonidine 0.3 mg/24 hr weekly 0.3 mg transdermal WEEKLY 11/23/18 02/10/24 transdermal patch coenzyme Q10 10 mg capsule (Co 10 mg PO QPM 11/23/18 02/10/24 Q-10) magnesium oxide 400 mg (241.3 mg 400 mg PO QAM 11/23/18 02/10/24 magnesium) tablet multivitamin with iron 1 tab PO QAM 11/23/18 02/10/24 omeprazole magnesium 20 mg 20 mg PO QPM 11/23/18 02/10/24 tablet,delayed release (Prilosec OTC) triamterene 37.5 1 cap PO QAM 11/23/18 02/10/24 mg-hydrochlorothiazide 25 mg capsule (Dyazide) clonidine HCl 0.1 mg tablet See Rx Instructions .Route 12/05/19 02/10/24 .COMPLEX blood pressure acetaminophen 325 mg tablet 325 mg PO QID PRN Pain 08/21/21 02/10/24 (Tylenol) ascorbate calcium (vitamin C) 500 500 mg PO QAM 07/29/22 02/10/24 mg tablet cyanocobalamin (vitamin B-12) 1,000 mcg PO 2XWK 08/22/23 02/10/24 1,000 mcg tablet (Vitamin B-12) Previous Rx's Medication Instructions Recorded atorvastatin 40 mg tablet 40 mg PO QPM #90 tabs 05/28/23 sildenafil 100 mg tablet 50 - 100 mg (0.5 - 1 x 100 mg) PO 07/02/23 DAILY PRN sexual activity #6 tabs apixaban 5 mg tablet (Eliquis) 5 mg PO BID #180 tabs 08/24/23 nitroglycerin 0.4 mg sublingual 0.4 mg sublingual Q5M PRN chest 01/25/24 tablet pain #25 tabs metoprolol succinate 50 mg 50 mg PO BID #180 tabs 01/26/24 tablet,extended release 24 hr lorazepam 1 mg tablet 1 mg PO DAILY PRN anxiety #90 tabs 03/07/24 duloxetine 20 mg capsule,delayed 20 mg PO DAILY #30 caps 04/10/24 release Results & Data (ED) Vital Signs Vital Signs - 24 hr 04/11/24 14:06 04/11/24 15:33 04/11/24 15:33 Temperature 36.5 C Temperature Source Temporal Artery Scan Pulse Rate 78 Pulse Rate [Right Finger] 69 Respiratory Rate 22 18 Respiratory Effort / Characteristics Non-Labored Spontaneous Blood Pressure 226/93 H Blood Pressure [Right Arm] 187/101 H Blood Pressure Mean 137 Blood Pressure Mean [Right Arm] 129 Blood Pressure Position [Right Arm] Lying Pulse Oximetry 94 99 99 Oxygen Delivery Method Room Air Room Air Room Air Sepsis Recent Fever Within 48 Hours No Sepsis New/Unexplained Change in Mental Status N/A Sepsis Action Taken by Nursing No Action Required 04/11/24 15:33 04/11/24 17:00 Temperature Temperature Source Pulse Rate 69 Pulse Rate [Right Finger] 73 Respiratory Rate 18 17 Respiratory Effort / Characteristics Non-Labored Spontaneous Blood Pressure Blood Pressure [Right Arm] 191/97 H Blood Pressure Mean Blood Pressure Mean [Right Arm] 128 Blood Pressure Position [Right Arm] Lying Pulse Oximetry 99 96 Oxygen Delivery Method Room Air Room Air Sepsis Recent Fever Within 48 Hours Sepsis New/Unexplained Change in Mental Status Sepsis Action Taken by Nursing Laboratory Data 04/11/24 14:31 04/11/24 14:31 Lab Results 04/11/24 04/11/24 Range/Units 14:31 14:59 WBC 7.55 (4.8-10.8) K/ul RBC 4.69 L (4.70-6.10) M/uL Hgb 14.2 (14.0-18.0) g/dl Hct 39.7 L (42.0-52.0) % MCV 84.6 (80.0-100.0) fL MCH 30.3 (25.0-34.0) pg MCHC 35.8 (32.0-36.0) g/dL RDW Std Deviation 39.0 (36.4-46.3) fL RDW Coeff of Monster 12.9 (11.5-14.5) % Plt Count 161 (130-400) K/uL MPV 8.5 L (9.4-12.4) fL Immature Gran % (Auto) 0.5 % Neut % (Auto) 72.2 % Lymph % (Auto) 16.4 % [place] % (Auto) 9.1 % Eos % (Auto) 1.3 % Baso % (Auto) 0.5 % Neut # (Auto) 5.44 (1.40-6.50) K/uL Lymph # (Auto) 1.24 (1.20-3.40) K/uL [place] # (Auto) 0.69 H (0.11-0.59) K/uL Eos # (Auto) 0.10 (0.00-0.50) K/uL Baso # (Auto) 0.04 (0.00-0.20) K/uL Immature Gran # (Auto) 0.04 (0.01-0.20) K/uL PT 11.0 (9.0-12.0) Seconds INR 1.0 (0.9-1.1) APTT 28 (21-31) Seconds PTT Ratio 1.0 Sodium 133 L (136-145) mmol/L Potassium 3.6 (3.5-5.1) mmol/L Chloride 94 L (98-107) mmol/L Carbon Dioxide 30 (21-32) mmol/L Anion Gap 9 (3-11) BUN 17 (6-23) mg/dl Creatinine 1.04 (0.6-1.4) mg/dl Est Cr Clr Drug Dosing 62.6 ml/min eGFR 72.59 BUN/Creatinine Ratio 16.3 (10-20) Glucose 111 H (70-99(Fasting)) mg/dl Calcium 10.7 H (8.6-10.3) mg/dl Total Bilirubin 0.8 (0.2-1.0) mg/dl AST 31 (13-39) U/L ALT 27 (7-52) U/L Alkaline Phosphatase 87 (34-104) U/L Total Protein 8.2 (6.0-8.3) gm/dl Albumin 5.1 H (3.4-5.0) gm/dl Globulin 3.1 (2.5-4.0) gm/dl Albumin/Globulin Ratio 1.6 (0.9-2) Lipase 27 (11-82) U/L Vitamin B12 301 (180-914) pg/ml Folate > 22.30 (>5.38) ng/ml Ethyl Alcohol mg/dL < 10.0 (<10.0) mg/dl Administered Medications Discontinued Medications Thiamine HCl 100 mg/ Syringe 10 mls @ 2 mls/min IV NOW ONE Stop: 04/11/24 14:13 Last Admin: 04/11/24 15:25 Dose: 2 mls/min Documented By: KIMMY Folic Acid 1 mg/ Syringe 10 mls @ 5 mls/min IV NOW ONE Stop: 04/11/24 14:10 Last Admin: 04/11/24 15:24 Dose: 5 mls/min Documented By: KIMMY Lorazepam (Lorazepam 2 Mg/1 Ml Vial) 2 mg IV NOW STA Stop: 04/11/24 16:41 Last Admin: 04/11/24 17:22 Dose: 2 mg Documented By: KIMMY Discharge Plan Visit Data Chief Complaint: Alcohol Intoxication Stated Complaint: ALCOHOL INTOXICATION ED Provider: Sarahy Alvarado Discharge Problem: Alcohol withdrawal Forms Stand Alone Forms: My [facility] Prescriptions Prescriptions: No Action acetaminophen [Tylenol] 325 mg tablet 325 mg PO QID PRN (Reason: Pain) Prilosec OTC 20 mg tablet,delayed release (DR/EC) 20 mg PO QPM coenzyme Q10 [Co Q-10] 10 mg capsule 10 mg PO QPM multivitamin with iron tablet 1 tab PO QAM clonidine 0.3 mg/24 hr patch weekly 0.3 mg transdermal WEEKLY Rx Instructions: Wednesday Evenings triamterene-hydrochlorothiazid [Dyazide] 37.5-25 mg capsule 1 cap PO QAM magnesium oxide 400 mg (241.3 mg magnesium) tablet 400 mg PO QAM clonidine HCl 0.1 mg tablet See Rx Instructions .ROUTE .COMPLEX Rx Instructions: Take 0.2mg by mouth in the morning and 0.1mg by mouth in the evening ascorbate calcium (vitamin C) 500 mg tablet 500 mg PO QAM atorvastatin 40 mg tablet 40 mg PO QPM Qty: 90 3RF sildenafil 100 mg tablet 50 - 100 mg PO DAILY PRN (Reason: sexual activity) Qty: 6 8RF nitroglycerin 0.4 mg tablet, sublingual 0.4 mg SL Q5M PRN (Reason: chest pain) Qty: 25 5RF Rx Instructions: PLACE 1 TAB UNDER TONGUE EVERY 5 MINS FOR UP TO 3 DOSES PRN CHEST PAIN. CALL 911 IF PAIN PERSISTS metoprolol succinate 50 mg tablet extended release 24 hr 50 mg PO BID Qty: 180 3RF lorazepam 1 mg tablet 1 mg PO DAILY PRN (Reason: anxiety) Qty: 90 0RF duloxetine 20 mg capsule,delayed release(DR/EC) 20 mg PO DAILY Qty: 30 3RF Eliquis 5 mg tablet 5 mg PO BID Qty: 180 3RF cyanocobalamin (vitamin B-12) [Vitamin B-12] 1,000 mcg Tablet 1,000 mcg PO 2XWK Rx Instructions: Tu/Fri Referrals Referrals: Justo Xavier DO [Primary Care Provider] -
[2024-04-11 15:35] LABS: Folate (Folic Acid),Ser orPlas > 22.30 ng/ml (>5.38); Partial Thromboplastin Time 28 Seconds (21-31)
[2024-04-11 15:36] LABS: Vitamin B12 301 pg/ml (180-914)
--- NOTE | 2024-04-11 16:55 | Electrocardiogram Report ---
Test Reason : Blood Pressure : */* mmHG Vent. Rate : 70 BPM Atrial Rate : 70 BPM P-R Int : 206 ms QRS Dur : 102 ms QT Int : 404 ms P-R-T Axes : 57 29 50 degrees QTcB Int : 436 ms Normal sinus rhythm Normal ECG When compared with ECG of 22-Aug-2023 15:38, Sinus rhythm has replaced Atrial fibrillation Criteria for Inferior infarct are no longer Present Confirmed by Triston Koch ([id number]) on 04/11/2024 4:55:30 PM Referred By: Confirmed By: Triston Koch
--- NOTE | 2024-04-11 17:08 | History & Physical Report ---
Date of Service April 11, 2024 Assessment & Plan (1) Alcohol abuse: (2) Alcohol withdrawal: (3) HTN (hypertension): (4) Paroxysmal A-fib: (5) CAD (coronary artery disease): Germain Mchugh is an 79M with a PMHx of paroxysmal afib, CAD (s/p stent 2015), hypertension, and alcohol abuse that was sent in by PCP (Dr. Garcia) for inpatient detox. No symptoms of withdrawal at time of admission, has a desire for therapy/alcohol cessation after this admission. #Alcohol Withdrawal 60 year drinking hx. Drinks 2-3 whiskey/water a night. Has resting tremor right hand at baseline. Ativan PO active protocol 200mg PO thiamine qAM. Folic acid level >22, continue PO supplementation Seizure precautions No assistive devices at home - may need PT/OT evals if prolonged non-ambulatory time with hospital stay #CAD/paroxysmal Afib/ HTN Continue clonidine 04/09, (patch placed on Sun), Metoprolol, atorvastatin and Eliquis. NSR on admisison. Hold triamterene-HCTZ #Mental Health Continue Duloxetine - recent decrease dose to 20mg hold prn ativan (usually taking 2-3 times a week) Dispo: admit to med/tele DVT proh: Home Eliquis CODE STATUS: Full Code updated at bedside on admission History of Present Illness Chief Complaint: alcohol withdrawal Primary Care Provider: Justo Xavier, DO Mchugh is an 79M with a PMHx of paroxysmal afib, CAD (s/p stent 2015), hypertension, and alcohol abuse that presents for alcohol withdrawal. Patient states he has been drinking for the last 60 years, longest time of sobriety one month. States he was sent over at the request of Dr. Garcia, also told by his that she may leave him if he does not stop drinking. Last drink was last night ~2200. He drinks two-three mixed drinks of whiskey-water a night. Does not measure the whiskey, but about a pint a week. ED course: Thimaine 100mg IV x1 Foliac Acid 1mg IV Ativan 2mg Iv X1 Allergies Allergy/AdvReac Type Severity Reaction Status Date / Time irbesartan Allergy Intermediate myalgia, Verified 02/10/24 14:27 diarrhea acetaminophen Allergy Unknown itching Verified 02/10/24 14:27 cat dander Allergy Unknown asthma Verified 02/10/24 14:27 related sx oxycodone Allergy Unknown itching Verified 02/10/24 14:27 latex Allergy itching, Verified 02/10/24 14:27 redness lisinopril AdvReac Mild cough Verified 02/10/24 14:27 Home Medications Medication Instructions Recorded Confirmed Type clonidine 0.3 mg/24 hr weekly 0.3 mg transdermal WEEKLY 11/23/18 04/11/24 History transdermal patch coenzyme Q10 10 mg capsule (Co 10 mg PO QPM 11/23/18 02/10/24 History Q-10) magnesium oxide 400 mg (241.3 mg 400 mg PO QAM 11/23/18 02/10/24 History magnesium) tablet multivitamin with iron 1 tab PO QAM 11/23/18 04/11/24 History omeprazole magnesium 20 mg 20 mg PO QPM 11/23/18 04/11/24 History tablet,delayed release (Prilosec OTC) triamterene 37.5 1 cap PO QAM 11/23/18 04/11/24 History mg-hydrochlorothiazide 25 mg capsule (Dyazide) clonidine HCl 0.1 mg tablet See Rx Instructions .Route 12/05/19 04/11/24 History .COMPLEX blood pressure acetaminophen 325 mg tablet 325 mg PO QID PRN Pain 08/21/21 02/10/24 History (Tylenol) ascorbate calcium (vitamin C) 500 500 mg PO QAM 07/29/22 02/10/24 History mg tablet atorvastatin 40 mg tablet 40 mg PO QPM #90 tabs 05/28/23 04/11/24 Rx sildenafil 100 mg tablet 50 - 100 mg (0.5 - 1 x 100 mg) PO 07/02/23 02/10/24 Rx DAILY PRN sexual activity #6 tabs cyanocobalamin (vitamin B-12) 1,000 mcg PO 2XWK 08/22/23 02/10/24 History 1,000 mcg tablet (Vitamin B-12) apixaban 5 mg tablet (Eliquis) 5 mg PO BID #180 tabs 08/24/23 04/11/24 Rx nitroglycerin 0.4 mg sublingual 0.4 mg sublingual Q5M PRN chest 01/25/24 04/11/24 Rx tablet pain #25 tabs metoprolol succinate 50 mg 50 mg PO BID #180 tabs 01/26/24 04/11/24 Rx tablet,extended release 24 hr lorazepam 1 mg tablet 1 mg PO DAILY PRN anxiety #90 tabs 03/07/24 04/11/24 Rx duloxetine 20 mg capsule,delayed 20 mg PO DAILY #30 caps 04/10/24 04/11/24 Rx release Past Med/Surg History Problem List (Updated 04/11/24 @ 18:10 by Sarahy Alvarado MD) Alcohol withdrawal (Acute) Alcohol withdrawal Alcohol abuse Stented coronary artery Dyslipidemia HTN (hypertension) Paroxysmal A-fib CAD (coronary artery disease) Idiopathic polyneuropathy Numbness and tingling of both feet Weakness of lower extremity Balance problem Preoperative cardiovascular examination Myofascial pain Sacroiliitis Benign keratosis Sensorineural hearing loss (SNHL) of both ears Vertigo Insomnia Hyperglycemia Erectile dysfunction Elevated transaminase level Near syncope Hypomagnesemia H/O prior ablation treatment History of SCC (squamous cell carcinoma) of skin Mitral regurgitation Fatty liver GERD (gastroesophageal reflux disease) Medical History History of CAD (coronary artery disease) Alcohol use Paroxysmal A-fib HTN (hypertension) Dyslipidemia CAD (coronary artery disease) Atrial fibrillation History of gout HLD (hyperlipidemia) HTN (hypertension) Cardiac murmur CAD (coronary artery disease) History of myocardial infarction Surgical History History of hernia repair History of excision of pilonidal cyst History of back surgery History of esophagogastroduodenoscopy (EGD) History of colonoscopy History of Mohs micrographic surgery for skin cancer History of cardiac catheterization H/O heart artery stent Status post insertion of drug-eluting stent into left anterior descending (LAD) artery for coronary artery disease (2014) S/P right coronary artery (RCA) stent placement (2000) Social History Smoking Status: Never smoker Tobacco Type: Cigarettes Second Hand Exposure: No; Do You Dip or Chew Tobacco: No; Tobacco Cessation Education Requested by Patient: No Hx Alcohol Use: Yes Alcohol type: hard liquor Hx Substance Use: No Preferred Language: Bermudian Communication Ability: Effective 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 [employer] Required: No Beliefs That Will Affect Care: None Current Living Situation: Spouse Current Living Situation Comment: lives at home with Other Information That Helps Us Care for You: No Feels Safe at Home: Yes Assistive Devices: None Assistive Devices Comment: reading glasses, b/l hearing aides Review of Systems Review of Systems: All systems reviewed & are unremarkable except as noted in Subjective Physical Exam Physical Exam: General: NAD, VS as above Resp: normal respiratory effort, lungs clear to auscultation CV: RRR, no murmur, Abd: normal bowel sounds, non tender, no hepatosplenomegaly Extremities: Moves all extremities, slight tremor to right hand, but states this is chronic. Neuro: A&O x3, Results & Data Results & Data Vital Signs (Past 12 Hours) Vital Signs Temp Pulse Pulse Resp BP BP Pulse Ox 04/11/24 15:33 69 18 99 04/11/24 15:33 69 18 187/101 H 99 04/11/24 15:33 99 04/11/24 14:06 97.7 F 78 22 226/93 H 94 O2 Del Method 04/11/24 15:33 Room Air 04/11/24 15:33 Room Air 04/11/24 15:33 Room Air 04/11/24 14:06 Room Air Laboratory Results cbc, chemistry, coags, Vitamin B12 and folate reviewed medical alcohol level reviewed Supervising Physician Co-Signing Physician Notes Attending Attestation & Admit Note: Pt seen/examined, chart reviewed, care plan d/w SALUD Echavarria. I agree w/ the penny components of her documentation with the following addition -- * benign essential tremor - chronic * hyponatremia * hypercalcemia 79M with h/o paroxysmal afib, CAD with prior MT (s/p stents), hypertension, and alcohol abuse (whiskey nightly). Presents from [facility] office due to concern of early etoh withdrawal and request for inpatient detox. Pt & his report that his tremor is chronic and unchanged from baseline. He denies sweats, tachycardia, or feeling anxious. Denies nausea/vomiting. He is motivated to stop drinking. He stopped drinking completely for a period of time 2-3 years ago and doesn't recall going thru any etoh withdrawal. PMH/PSH/allergies/meds/sochx/famhx - reviewed VSS although BPs are elevated gen - NAD, lying comfortably in bed neuro - mild tremors of arms noted eyes - no nystagmus neck - no JVD mouth - MM slightly dry heart - RRR, s1 s2, no murmur lungs - CTA b/l abd - soft NT ND BS+; no HSM ext - pulses 2+ b/l labs reviewed - Na 133, Ca 10.7 EKG - NSR, no ST changes A/P: 1. alcohol dependence with request to detox 2. uncontrolled HTN - could be early sign of etoh withdrawal or simply due to uncontrolled HTN 3. mild hyponatremia - could be mild volume contraction; could be 2nd to HCTZ; agree w/ holding HCTZ; repeat BMP am 4. mild hypercalcemia - could be due to HCTZ use; could be worsened from mild dehydration; hydrate, hold HCTZ, repeat calcium level am 5. h/o PAF - cont Eliquis, cont meto succ 6. CAD - cont chronic meds (statin, BB) 7. essential tremor - cont metoprolol #1 above -- given advanced age would not place on gabapentin protocol, phenobarbital scheduled or standing librium simply place on AWSS protocol with symptom triggered ativan prn for now thiamine/folic acid supplementation social work assistance for inpatient/outpatient etoh services - depending on desires of patient Harris Becker MD PG Care Time/CCT Total # of Minutes Spent Total Time Spent with Patient: Total time spent is greater than 50% in coordination of care (as documented) at patient's floor/unit and/or counseling patient: Coding Level of Care Code 90004 INT INP/OBS CARE 3/75MIN Diagnoses Alcohol abuse F10.10 Alcohol withdrawal F10.939 Primary hypertension I10 Hypertension type: primary hypertension Paroxysmal A-fib I48.0 Coronary artery disease involving [place] coronary artery of [place] heart without angina pectoris I25.10 Associated angina: without angina Coronary Disease-Associated Artery/Lesion type: [place] artery [place] vs. transplanted heart: [place] heart (3) HTN (hypertension) Hypertension type: primary hypertension Qualified Code(s): I10 - Essential (primary) hypertension (5) CAD (coronary artery disease) Associated angina: without angina Coronary Disease-Associated Artery/Lesion type: [place] artery [place] vs. transplanted heart: [place] heart Qualified Code(s): I25.10 - Atherosclerotic heart disease of [place] coronary artery without angina pectoris
[2024-04-11] MEDS: LORazepam 2 MG/1 ML VIAL IV STA (17:22)
[2024-04-11] MEDS ORDERED: cloNIDine HCL 0.3 MG/24 HR TRANSDERM SYS TD SCH (20:10)
[2024-04-11] MEDS ORDERED: ONDANSETRON INJ 2 MG/ML 2 ML VIAL IV PRN (20:10)
[2024-04-11] MEDS ORDERED: Ativan PO Alcohol Withdrawal--Active Protocol PO PRN (20:10)
[2024-04-11] MEDS ORDERED: LORazepam 1 MG TAB PO PRN ×2 (20:10)
[2024-04-11] MEDS ORDERED: POLYETHYLENE (MIRALAX) 17 GM PACK PO PRN (20:10)
--- OUTSIDE RECORDS SUMMARY | 2024-04-11 20:25 | External Medical Summary | Continuity of Care Document ---
Author Name Unknown Organization [place] [id number] Address [address] [place] [phone] Care Team Providers Care Major Assembly Lineman Name Role Phone Justo Xavier Primary Care Physician [phone] [id number] Date(s): 03/27/24 - 03/27/24 [facility] [address] [facility] [address] [facility] [address] [place] [address] Encounter Diagnosis Complete rotator cuff tear or rupture of right shoulder, not specified as traumatic(Discharge Diagnosis) - 03/27/24 Discharge Disposition: Home or Self Care Attending Physician: MD French, Vladimir Morejon Allergies, Adverse Reactions, Alerts Substance Criticality Severity Reaction Reaction Severity Status lisinopril cough Active Avapro muscle cramps Active Percocet 5/325 Itching Activ e Endocet itchy Active Animal dander 1 Itching of eye Active 1cats Immunizations Given and Recorded Vaccine Date Status Refusal Reason influenza virus vaccine, inactivated 12/30/23 Naga rded influenza virus vaccine, inactivated 01/19/23 Naga rded [...] virus vaccine, inactivated 15 01/29/97 R ecorded SARS-CoV-2 (COVID-19) mRNA-vacc - [id number] 12/30/23 Recorded SARS-CoV-2 (COVID-19) mRNA-vacc - [id number] 01/26/23 Recorded RSV vaccine preF3, recombinant 01/19/23 Recorded SARS-CoV-2 mRNA-1273 (6y+ bivalent) 01/12/22 Recor ded tetanus/diphtheria/pertuss, acel (Tdap) 07/31/21 R ecorded tetanus/diphtheria/pertuss, acel (Tdap) 02/10/21 R ecorded tetanus/diphtheria/pertuss, acel (Tdap) 09/16/10 R ecorded SARS-CoV-2 (COVID-19) mRNA-1273 vaccine 07/31/21 R ecorded zoster vaccine, inactivated 06/20/21 Recorded zoster vaccine, inactivated 02/10/21 Recorded zoster vaccine, inactivated 01/20/21 Recorded pneumococcal [...] 21Result Comment: 2018-03-16: Historical information-source unspecified Medications atorvastatin 40 mg oral tablet Start: 08/02/15 10:03:00 AM EDT, 1 tab, PO, qhs Start Date: 08/02/15 Status: Ordered cloNIDine 0.3 mg/24 hr transdermal film, extended release Start: 11/19/23 3:14:00 PM EDT, 1 patch, topical, q7days, Disp# 12 patch, Refills: 3, Pharmacy: [facility] Start Date: 11/19/23 Status: Ordered Coenzyme Q10 Start: 04/18/10 10:36:22 AM EST, 100 mg =, PO, Daily, Refills: 0, current medication from another provider Start Date: 04/18/10 Status: Ordered doxycycline hyclate 50 mg oral capsule Start: 12/30/23 1:50:00 PM EDT, 1 cap, PO, Daily, Disp# 90 cap, Refills: 1, One daily with food, Pharmacy: [facility] Start Date: 12/30/23 Status: Ordered DULoxetine 30 mg oral delayed release capsule Start: 02/15/24 9:04:00 AM EST Start Date: 02/15/24 Status: Ordered Eliquis 5 mg oral tablet Start: 01/05/24 2:07:00 PM EDT, 1 tab, PO, bid Start Date: 01/05/24 Status: Ordered fluocinonide 0.05% topical solution Start: 12/30/23 1:51:00 PM EDT, See Instructions, Disp# 60 mL, Refills: 1, TO red itchy scalp once or twice a day., Pharmacy: [facility] Start Date: 12/30/23 Status: Ordered hydrochlorothiazide-triamterene 25 mg-37.5 mg oral capsule Start: 05/28/23 12:57:00 PM EST, 1 cap, PO, Daily, Disp# 90 cap, Refills: 3, Pharmacy: [facility] Start Date: 05/28/23 Status: Ordered ketoconazole 2% topical shampoo Start: 01/26/23 8:04:00 AM EST, See Instructions, Disp# 120 mL, Refills: 11, Shampoo at least 3 times per week., Pharmacy: [facility] Start Date: 01/26/23 Status: Ordered lorazepam 1 mg oral tablet Start: 07/20/12 2:08:00 PM EDT, 1 tab, PO, tid, PRN: as needed for anxiety Start Date: 07/20/12 Status: Ordered magnesium oxide 400 mg (241.3 mg elemental magnesium) oral tablet Start: 01/18/15 2:00:00 PM EDT, 1 tab, PO, Daily Start Date: 01/18/15 Status: Ordered Metoprolol Succinate ER 50 mg oral tablet, extended release Start: 01/25/24 2:26:00 PM EST, See Instructions, Disp# 180 tab, Refills: 3, TAKE 1 TABLET TWICE A DAY, Pharmacy: [facility] Start Date: 01/25/24 Status: Ordered multivitamin with iron Start: 01/11/12 [...] Refills: 2, To invovled areas BID, Pharmacy: [id number] Start Date: 07/01/23 Status: Ordered Viagra 100 [...] Start Date: 12/03/22 Status: Ordered Mental Status 03/27/24 Barriers to Learning one year None evide nt Mandatory Health Literacy Documentation Yes Health Literacy Communication Barriers N ever Primary Language [place] Problem List Condition Confirmation Course Effective Dates [...] Active Pain in right foot Confirmed Active Right rotator cuff tear Confirmed Active Acid reflux Confirmed Active Encounter for follow-up examination after completed treatment for cancer Confirmed Active Hearing loss Confirmed Active Heart [...] cuff syndrome Confirmed Active Seborrhea Confirmed Active Seborrhea Confirmed Active Seborrheic keratoses Confirmed Active Shoulder pain, left Confirmed Active Strain of right shoulder Confirmed Active Skin irritation Confirmed Active Lumbar stenosis Confirmed Active Right hip tendonitis Confirmed Active THROMBOCYTOPENIA, UNSPECIFIED Confirmed Active Trigger finger of left hand Confirmed Active Urinary incontinence Confirmed Active Vertigo Confirmed Active 1L4_S1 Diagnosis Diagnosis Type Effective Dates Health Status Cl inical Service Informant Complete rotator cuff tear or rupture of right shoulder, not specified as traumatic Discharge Diagnosis 03/27/24 Procedures Procedure Date Related Diagnosis Body Site Status Shave biopsy and cauterization of skin 12/30/23 Completed Shave biopsy 1 04/21/23 Completed Shave biopsy [...] at the L4- 5 level. 7[facility] 8Impression: senescent change as above with no acute intracranial abnormality identified 9right dorsal hand 10Left upper back 11Unremarkable measuring radiographic evaluation of the right shoulder. 12impression: 1. Multiple mildly dilated thick-walled small bowel loops consistent with a nonspecific enteritis 2. No evidence of bowel obstruction. no evidenc of free air 3. normal appendix 4. extensive sigmoid diverticulosis. No evidence of acute diveticulitis 13[facility] Impression: 1. Chronic small vessel ischemic change. No acute intracranial abnormality 2. No abnormal enhancement 1410 Year Recall 344121 (last colonoscopy) No polyps Social History Social History Type Response Smoking Status Never smoked cigaret adrienne Sex Male Sex Representation Male (finding) Ortho Outpt Note * Anamaria Corado: PERFORM, MODIFY Event Display: Ortho Outpt Note Authored Date: [id number] Name:STEVE BULLARD Patient Number:[id number] :1945 Date of Service:03/27/2024 CHIEF COMPLAINT: Right shoulder MRI review HPI: Kael kemarClarissa, LORRAINE,who presents today forevaluation of his right shoulder.Patient reports 2.5 months agohe fell forward at home landing on his right elbow. Patient complain of intermittent throbbing pain worse with movement. He has difficulty with outstretched reaching and has been switching gears with his left arm.He notes no change in his pain over the last several weeks since the injury and finds the current state of his shoulder to be limiting. He is on Eliquis ROS: No hx of diabetesor pacemaker. Otherwise refer to HPI PHYSICAL EXAM: Focus on the right upper extremity: Sensation intact to the median, radial, ulnar, axillary, and subscapular nerve distributions. Full active and passive shoulder ROM Significant pain and weakness with Ross and Neer testing Weakness with shoulder external rotation Cervical ROM is without any restriction DIAGNOSTIC REVIEW: I reviewed and independently interpreted an MRI of the right shoulder which shows full-thickness supraspinatus rotator cuff tear. IMPRESSION: Right shoulder full-thickness supraspinatus rotator cuff tear PLAN: Discussed options including observation and medical management vs surgical intervention. Risks and benefits of each were discussed. He would like to proceed with right shoulder arthroscopy and rotator cuff repair. He will need medical clearance from his back hand and PCP prior to surgery. Follow-up as needed for vtq-tzo-kzws-operative appointments ATTESTATION: Anamaria Velazco, scribing for and in the presence of, Vladimir Braswell, on this date,03/27/2024 13:46:58. Electronic Signature on File Electronically Reviewed/Signed by: Anamaria Corado Author Signature Dt/Tm:03/27/2024 02:08 PM Electronically Reviewed/Signed by: Vladimir Braswell MD Cosigner Signature Dt/Tm: 03/27/2024 02:08 PM Apprentice Plumber for Clinical Affairs, [facility] Ish Professor in Orthopaedics Geological Aide, [facility] Patient Care team information Care Team Personnel Name: HARDY Berrios Tara Position: Nurse Pract - Family Med Member Role: Lifetime Relationship Address: [address] [place] [id number] Name: DO Xavier Franklin J Position: Physician - Family Med Member Role: Primary Care Provider Address: [address] [facility] [address] [place] [address] Care Team Related Persons Name: NASH BULLARD
--- OUTSIDE RECORDS SUMMARY | 2024-04-11 20:26 | External Medical Summary | Continuity of Care Document ---
Author Name Unknown Organization [address] Address [address] [place] [phone] Care Team Providers Care Forcer Maker Name Role Phone Justo Xavier Primary Care Physician [phone] Encounter [facility] [id number] Date(s): 03/13/24 - 03/13/24 [facility] [address] [place] [id number] [facility] [address] [place] [id number] Encounter Diagnosis Right rotator cuff tear(Discharge Diagnosis) - 03/13/24 Discharge Disposition: Home or Self Care Attending Physician: TERRI Awan Cory D Allergies, Adverse Reactions, Alerts Substance Criticality Severity Reaction Reaction Severity Status lisinopril cough Active Avapro muscle cramps Active Percocet 5/325 Itching Activ e Endocet itchy Active Animal dander 1 Itching of eye Active 1cats Assessment and Plan Extracted from: Title:Clinical Document Author:TERRI Awan C ory D Date:03/13/24 OUTPATIENT NOTE Name: STEVE BULLARD Patient Number:[id number] : 1945 Date of Service: 03/13/2024 Chief complaint: Follow-up right shoulder, review of MRI HPI: This 79-year-old male presents today for reevaluation of his right shoulder. He states it has not improved. He continues to have difficulty when putting on his clothing as well as reaching with his right arm. No new injury. No numbness or tingling. No other complaints. He is now 8 weeks out from his fall [place] his cabin. Physical exam General: Well-developed, well-nourished, elderly male, in no acute distress. Sitting in the chair. Alert and oriented. Skin: Warm and dry with fair turgor. No rashes. No edema at the shoulder. Musculoskeletal: The patient has limited motion of his right shoulder secondary to pain. External rotation of 40 degrees with his elbow at the side. Forward flexion and abduction of 160 degrees with considerable effort. He is notably weak with any activity above shoulder level. Elbow exam is benign. Full motion. Neurologic: Gross sensation is intact across the right arm by soft touch. Data: MRI imaging of the right shoulder previous obtained was reviewed with the patient. He has a full-thickness supraspinatus tear. Mild arthritic changes in the shoulder. No evidence of labral injury. Impression: Right shoulder full-thickness supraspinatus rotator cuff tear. Plan: The patient was educated regarding today's findings. Conservative care measures were discussed. Option of nonoperative treatment with physical therapy as well as surgical treatment was discussed at length. He states he cannot live with the shoulder the way that it is. He feels he is too active. He would like it fixed. I will have him see Dr. Braswell for surgical consultation and to see whether he is an appropriate candidate. He was encouraged to work on his motion through pendulum exercises as well as gentle stretching. Call with any other concerns. This dictation has been completed using [employer] text voice recognition software. Grammatical errors, omissions, insertions, and misspellings may be present due to the limitations of the software. Immunizations Given and Recorded Vaccine Date Status [...] 01/29/97 R ecorded SARS-CoV-2 (COVID-19) mRNA-vacc - [id number] 12/30/23 Recorded SARS-CoV-2 (COVID-19) mRNA-vacc - [id number] 01/26/23 Recorded RSV vaccine preF3, recombinant 01/19/23 [...] q7days, Disp# 12 patch, Refills: 3, Pharmacy: [facility] Start Date: 11/19/23 Status: Ordered Coenzyme Q10 Start: 04/18/10 10:36:22 AM EST, 100 mg =, PO, Daily, Refills: 0, current medication from another provider Start Date: 04/18/10 Status: Ordered doxycycline hyclate 50 mg oral capsule Start: 12/30/23 1:50:00 PM EDT, 1 cap, PO, Daily, Disp# 90 cap, Refills: 1, One daily with food, Pharmacy: [facility] Start Date: 12/30/23 Status: Ordered [...] scalp once or twice a day., Pharmacy: [facility] Start Date: 12/30/23 Status: Ordered hydrochlorothiazide-triamterene 25 mg-37.5 mg oral capsule Start: 05/28/23 12:57:00 PM EST, 1 cap, PO, Daily, Disp# 90 cap, Refills: 3, Pharmacy: [facility] Start Date: 05/28/23 Status: Ordered ketoconazole 2% topical shampoo Start: 01/26/23 8:04:00 AM EST, See Instructions, Disp# 120 mL, Refills: 11, Shampoo at least 3 times per week., Pharmacy: [id number] Start Date: 01/26/23 Status: [...] TAKE 1 TABLET TWICE A DAY, Pharmacy: [facility] Start Date: 01/25/24 Status: Ordered [...] Refills: 2, To invovled areas BID, Pharmacy: [id number] Start Date: 07/01/23 Status: Ordered Viagra 100 [...] Start Date: 12/03/22 Status: Ordered Mental Status 03/13/24 Barriers to Learning one year None evide nt Mandatory Health Literacy Documentation Yes Health Literacy Communication Barriers N ever Primary Language [place] Problem List Condition Confirmation Course Effective Dates [...] foot Confirmed Active Acid reflux Confirmed Active Encounter [...] Dates Health Status Cl inical Service Informant Right rotator cuff tear Discharge Diagnosis 03/13/24 Procedures Procedure Date Related Diagnosis Body Site [...] 12/08/16 Completed Procedure,99m cardiolite hank cardial perfusion scanone day nuclear medicine technetium- 08/07/16 Completed Lumbar Laminectomy 01/08/16 Comple amarilis Upper GI endoscopy 11/22/15 Comple amarilis Colonoscopy 14 07/01/15 Completed Cardiac Catherization & Ana nary Artery stent, multiple 12/2014 Completed Colonoscopy, multiple 15 2009 Completed L5-S1 laminectomy. Left-side d L5 [...] at the L4- 5 level. 7[facility] 8Impression: senescent change as above with no acute intracranial abnormality identified 9right dorsal hand 10Left upper back 11Unremarkable measuring radiographic evaluation of the right shoulder. 12impression: 1. Multiple mildly dilated thick-walled small bowel loops consistent with a nonspecific enteritis 2. No evidence of bowel obstruction. no evidenc of free air 3. normal appendix 4. extensive sigmoid diverticulosis. No evidence of acute diveticulitis 13[facility] Impression: 1. Chronic small vessel ischemic change. No acute intracranial abnormality 2. No abnormal enhancement 1410 Year Recall 369386 (last colonoscopy) No polyps Social History Social History Type Response Smoking Status Never smoked cigaret adrienne Sex Male Sex Representation Male (finding) Outpatient Note * TERRI Awan, Pedro Hess: PERFORM, MODIFY, MODIFY Event Display: .Outpt Note Authored Date: OUTPATIENT NOTE Name: STEVE BULLARD Patient Number:[id number] : 1945 Date of Service: 03/13/2024 Chief complaint: Follow-up right shoulder, review of MRI HPI: This 79-year-old male presents today for reevaluation of his right shoulder. He states it has not improved. He continues to have difficulty when putting on his clothing as well as reaching with his right arm. No new injury. No numbness or tingling. No other complaints. He is now 8 weeks out from his fall [place] cabin. Physical exam General: Well-developed, well-nourished, elderly male, in no acute distress. Sitting in the chair. Alert and oriented. Skin: Warm and dry with fair turgor. No rashes. No edema at the shoulder. Musculoskeletal: The patient has limited motion of his right shoulder secondary to pain. External rotation of 40 degrees with his elbow at the side. Forward flexion and abduction of 160 degrees with considerable effort. He is notably weak with any activity above shoulder level. Elbow exam is benign. Full motion. Neurologic: Gross sensation is intact across the right arm by soft touch. Data: MRI imaging of the right shoulder previous obtained was reviewed with the patient. He has a full-thickness supraspinatus tear. Mild arthritic changes in the shoulder. No evidence of labral injury. Impression: Right shoulder full-thickness supraspinatus rotator cuff tear. Plan: The patient was educated regarding today's findings. Conservative care measures were discussed. Option of nonoperative treatment with physical therapy as well as surgical treatment was discussed at length. He states he cannot live with the shoulder the way that it is. He feels he is too active. He would like it fixed. I will have him see Dr. Braswell for surgical consultation and to see whether he is an appropriate candidate. He was encouraged to work on his motion through pendulum exercises as well as gentle stretching. Call with any other concerns. This dictation has been completed using [employer] text voice recognition software. Grammatical errors, omissions, insertions, and misspellings may be present due to the limitations of the software. Electronic Signature on File Electronically Reviewed/Signed by: Pedro Awan PA-C Author Signature Dt/Tm:03/13/2024 05:08 PM Division of Sports Medicine Electronically Reviewed/Signed by: Vladimir Braswell MD Cosigner Signature Dt/Tm: 03/14/2024 08:07 AM Aviation Operations Specialist for Clinical Affairs, [facility] Ish Professor in Orthopaedics [place], [facility] CDS Patient Care team information Care Team Personnel Name: HARDY Berrios Tara Position: Nurse Pract - Family Med Member Role: Lifetime Relationship Address: [address] [place] [address] [place] Name: DO Xavier Franklin J Position: Physician - Family Med Member Role: Primary Care Provider Address: [address] [place] [address] [place] Care Team Related Persons Name: NASH BULLARD
[2024-04-11] MEDS: cloNIDine HCL 0.1 MG TAB PO SCH (22:04)
[2024-04-11] MEDS: APIXABAN 5 MG TABLET PO SCH (22:05)
[2024-04-11] MEDS: METOPROLOL SUCC 50MG EXT REL TAB PO SCH (22:05)
[2024-04-11] MEDS: ATORVASTATIN 40 MG TAB PO SCH (22:05)
[2024-04-11] MEDS: LORazepam 1 MG TAB PO PRN (22:56)
[2024-04-12] MEDS ORDERED: CHECK CLONIDINE PATCH PLACEMENT SCH
[2024-04-12 07:37] LABS: Basophils # (auto) 0.04 K/uL (0.00-0.20); Basophils % (auto) 0.6 %; Eosinophils # (auto) 0.16 K/uL (0.00-0.50); Eosinophils % (auto) 2.3 %; Hematocrit (blood only) 34.3 % (42.0-52.0); Hemoglobin 12.2 g/dl (14.0-18.0); Immature Granulocytes # (auto) 0.05 K/uL (0.01-0.20); Immature Granulocytes % (auto) 0.7 %; Lymphocytes # (auto) 1.52 K/uL (1.20-3.40); Lymphocytes % (auto) 22.1 %; Mean Corpuscular Hemoglobin 30.3 pg (25.0-34.0); Mean Corpuscular Hgb Conc 35.6 g/dL (32.0-36.0); Mean Corpuscular Volume 85.3 fL (80.0-100.0); Mean Platelet Volume 8.5 fL (9.4-12.4); Monocytes # (auto) 0.71 K/uL (0.11-0.59); Monocytes % (auto) 10.3 %; Neutrophils # (auto) 4.39 K/uL (1.40-6.50); Platelet Count 136 K/uL (130-400); RDW Coefficient of Variation 12.9 % (11.5-14.5); RDW Standard Deviation 39.7 fL (36.4-46.3); Red Blood Count 4.02 M/uL (4.70-6.10); White Blood Count 6.87 K/ul (4.8-10.8)
[2024-04-12] MEDS: cloNIDine HCL 0.1 MG TAB PO SCH ×2 (07:53→21:50)
[2024-04-12 07:57] LABS: Albumin Globulin Ratio 1.8 (0.9-2); Albumin Level 4.2 gm/dl (3.4-5.0); BUN Creatinine Ratio 20.8 (10-20); Calcium 10.1 mg/dl (8.6-10.3); Creatinine Clr Calc Pharmacy 60.2 ml/min; Globulin 2.4 gm/dl (2.5-4.0); Potassium 3.8 mmol/L (3.5-5.1); Total Protein 6.6 gm/dl (6.0-8.3)
[2024-04-12] MEDS ORDERED: cloNIDine HCL 0.1 MG TAB PO SCH (09:00)
[2024-04-12] MEDS: DULoxetine HCL 20 MG CAP PO SCH (10:39)
[2024-04-12] MEDS: FOLIC ACID 1 MG TAB PO SCH (10:40)
[2024-04-12] MEDS: THIAMINE HCL 100 MG TAB PO SCH (10:40)
[2024-04-12] MEDS: PANTOprazole 40 MG TAB PO SCH (10:40)
--- NOTE | 2024-04-12 22:24 | Hospitalist Progress Note ---
Date of Service April 12, 2024 Assessment & Plan (1) Alcohol abuse: (2) Alcohol withdrawal: (3) HTN (hypertension): (4) Paroxysmal A-fib: (5) CAD (coronary artery disease): Germain Mchugh is an 79M with a PMHx of paroxysmal afib, CAD (s/p stent 2015), hypertension, and alcohol abuse that was sent in by PCP (Dr. Garcia) for inpatient detox. No symptoms of withdrawal at time of admission, has a desire for therapy/alcohol cessation after this admission. #Alcohol Withdrawal 60 year drinking hx. Drinks 2-3 whiskey/water a night. Has resting tremor right hand at baseline. Ativan PO active protocol 200mg PO thiamine qAM. Folic acid level >22, continue PO supplementation Seizure precautions No assistive devices at home - may need PT/OT evals if prolonged non-ambulatory time with hospital stay now with tremors #CAD/paroxysmal Afib/ HTN Continue clonidine 04/09, (patch placed on Sun), Metoprolol, atorvastatin and Eliquis. NSR on admisison. Hold triamterene-HCTZ #Mental Health Continue Duloxetine - recent decrease dose to 20mg hold prn ativan (usually taking 2-3 times a week) Dispo: admit to med/tele DVT proh: Home Eliquis CODE STATUS: Full Code updated at bedside on admission Admission and Anticipated Discharge Date Admission Date: April 11, 2024 Subjective 79 yo male reports no new symptoms. Physical Exam Constitutional: WD/WN, vitals as above Neck: trachea midline, no thyromegaly Respiratory: normal respiratory effort, lungs clear to auscultation Cardiovascular: RRR, no murmur, no edema Results & Data Results & Data Vital Signs (Past 12 Hours) Vital Signs Temp Pulse Pulse Resp BP BP Pulse Ox 04/12/24 22:08 36.4 C L 66 16 188/91 H 96 04/12/24 19:37 36.4 C L 69 16 172/82 H 95 04/12/24 16:05 36.6 C 70 18 156/80 H 91 04/12/24 13:00 70 04/12/24 10:46 36.3 C L 62 18 157/82 H 97 O2 Del Method 04/12/24 22:08 Room Air 04/12/24 19:37 Room Air 04/12/24 16:05 Room Air 04/12/24 13:00 04/12/24 10:46 Room Air PG Care Time/CCT Total # of Minutes Spent Total Time Spent with Patient: Total time spent is greater than 50% in coordination of care (as documented) at patient's floor/unit and/or counseling patient: Coding Level of Care Code 06704 SUB INP/OBS CARE 2/35MIN Diagnoses Alcohol abuse F10.10 Alcohol withdrawal F10.939 Primary hypertension I10 Hypertension type: primary hypertension Paroxysmal A-fib I48.0 Coronary artery disease involving [place] coronary artery of [place] heart without angina pectoris I25.10 Coronary Disease-Associated Artery/Lesion type: [place] artery [place] vs. transplanted heart: [place] heart Associated angina: without angina (3) HTN (hypertension) Hypertension type: primary hypertension Qualified Code(s): I10 - Essential (primary) hypertension (5) CAD (coronary artery disease) Coronary Disease-Associated Artery/Lesion type: [place] artery [place] vs. tr ansplanted heart: [place] heart Associated angina: without angina Qualified Code(s): I25.10 - Atherosclerotic heart disease of [place] coronary artery without angina pectoris
[2024-04-13 08:58] LABS: Hematocrit (blood only) 34.5 % (42.0-52.0); Hemoglobin 12.3 g/dl (14.0-18.0); Mean Corpuscular Hemoglobin 30.3 pg (25.0-34.0); Mean Corpuscular Hgb Conc 35.7 g/dL (32.0-36.0); Mean Platelet Volume 8.5 fL (9.4-12.4); Platelet Count 135 K/uL (130-400); RDW Coefficient of Variation 12.7 % (11.5-14.5); RDW Standard Deviation 38.7 fL (36.4-46.3); Red Blood Count 4.06 M/uL (4.70-6.10); White Blood Count 6.22 K/ul (4.8-10.8)
[2024-04-13 09:09] LABS: BUN Creatinine Ratio 18.7 (10-20); Calcium 10.1 mg/dl (8.6-10.3); Creatinine Clr Calc Pharmacy 59.5 ml/min; Potassium 3.8 mmol/L (3.5-5.1)
[2024-04-13] MEDS: ACETAMINOPHEN 325 MG TAB PO PRN (13:34)
--- NOTE | 2024-04-13 22:49 | Hospitalist Progress Note ---
Date of Service April 13, 2024 Assessment & Plan (1) Alcohol abuse: (2) Alcohol withdrawal: (3) HTN (hypertension): (4) Paroxysmal A-fib: (5) CAD (coronary artery disease): Plan Jeison is an 79M with a PMHx of paroxysmal afib, CAD (s/p stent 2015), hypertension, and alcohol abuse that was sent in by PCP (Dr. Garcia) for inpatient detox. No symptoms of withdrawal at time of admission, has a desire for therapy/alcohol cessation after this admission. #Alcohol Withdrawal 60 year drinking hx. Drinks 2-3 whiskey/water a night. Has resting tremor right hand at baseline. Ativan PO active protocol 200mg PO thiamine qAM. Folic acid level >22, continue PO supplementation Seizure precautions No assistive devices at home - may need PT/OT evals if prolonged non-ambulatory time with hospital stay contiues with tremors, but patient has no other symptoms of alcohol withdrawal, last drink was wednesday evening. Will discharge tomorrow if he continues to do well. #CAD/paroxysmal Afib/ HTN Continue clonidine 04/09, (patch placed on Sun), Metoprolol, atorvastatin and Eliquis. NSR on admisison. Hold triamterene-HCTZ #Mental Health Continue Duloxetine - recent decrease dose to 20mg hold prn ativan (usually taking 2-3 times a week) Admission and Anticipated Discharge Date Admission Date: April 11, 2024 Subjective 79 yo male reports no new symptoms. Physical Exam Constitutional: WD/WN, vitals as above Neck: trachea midline, no thyromegaly Respiratory: normal respiratory effort, lungs clear to auscultation Cardiovascular: RRR, no murmur, no edema Musculoskeletal: minimal tremors Results & Data Results & Data Vital Signs (Past 12 Hours) Vital Signs Temp Pulse Pulse Resp BP BP Pulse Ox 04/13/24 22:36 36.5 C 62 18 180/99 H 95 04/13/24 19:58 36.8 C 64 18 186/96 H 95 04/13/24 15:51 36.4 C L 62 18 170/91 H 97 04/13/24 12:50 82 04/13/24 11:13 36.4 C L 63 18 156/81 H 94 O2 Del Method 04/13/24 22:36 Room Air 04/13/24 19:58 Room Air 04/13/24 15:51 Room Air 04/13/24 12:50 04/13/24 11:13 Room Air PG Care Time/CCT Total # of Minutes Spent Total Time Spent with Patient: Total time spent is greater than 50% in coordination of care (as documented) at patient's floor/unit and/or counseling patient: Coding Level of Care Code 33755 SUB INP/OBS CARE 2/35MIN Diagnoses Alcohol abuse F10.10 Alcohol withdrawal F10.939 Primary hypertension I10 Hypertension type: primary hypertension Paroxysmal A-fib I48.0 Coronary artery disease involving [place] coronary artery of [place] heart without angina pectoris I25.10 Associated angina: without angina Coronary Disease-Associated Artery/Lesion type: [place] artery [place] vs. transplanted heart: [place] heart (3) HTN (hypertension) Hypertension type: primary hypertension Qualified Code(s): I10 - Essential (primary) hypertension (5) CAD (coronary artery disease) Associated angina: without angina Coronary Disease-Associated Artery/Lesion type: [place] artery [place] vs. transplanted heart: [place] heart Qualified Code(s): I25.10 - Atherosclerotic heart disease of [place] coronary artery with out angina pectoris
[2024-04-14 11:55] VITALS: BP 164/85; RESP 16; TEMP 97.5; O2SAT 97
[2024-04-14 13:25] VITALS: PULSE 63
--- NOTE | 2024-04-17 14:03 | Discharge Summary ---
Discharge Summary Date of Service April 14, 2024 Principal Dx & Hospital Course #1 = Principal Diagnosis (1) Alcohol abuse: (2) Alcohol withdrawal: (3) HTN (hypertension): (4) Paroxysmal A-fib: (5) CAD (coronary artery disease): Plan Jeison is an 79M with a PMHx of paroxysmal afib, CAD (s/p stent 2015), hypertension, and alcohol abuse that was sent in by PCP (Dr. Garcia) for inpatient detox. No symptoms of withdrawal at time of admission, has a desire for therapy/alcohol cessation after this admission. #Alcohol Withdrawal 60 year drinking hx. Drinks 2-3 whiskey/water a night. Has resting tremor right hand at baseline. Ativan PO active protocol 200mg PO thiamine qAM. Folic acid level >22, continue PO supplementation Seizure precautions No assistive devices at home - may need PT/OT evals if prolonged non-ambulatory time with hospital stay #CAD/paroxysmal Afib/ HTN Continue clonidine 04/09, (patch placed on Sun), Metoprolol, atorvastatin and Eliquis. NSR on admisison. Hold triamterene-HCTZ #Mental Health Continue Duloxetine - recent decrease dose to 20mg hold prn ativan (usually taking 2-3 times a week) Dispo: admit to med/tele DVT proh: Home Eliquis CODE STATUS: Full Code updated at bedside on admission Admission HPI Per Admitting Provider Jeison is an 79M with a PMHx of paroxysmal afib, CAD (s/p stent 2015), hypertension, and alcohol abuse that presents for alcohol withdrawal. Patient states he has been drinking for the last 60 years, longest time of sobriety one month. States he was sent over at the request of Dr. Garcia, also told by his that she may leave him if he does not stop drinking. Last drink was last night ~2200. He drinks two-three mixed drinks of whiskey-water a night. Does not measure the whiskey, but about a pint a week. ED course: Thimaine 100mg IV x1 Foliac Acid 1mg IV Ativan 2mg Iv X1 Discharge Exam Constitutional WD/WN, vitals as above Neck trachea midline, no thyromegaly Respiratory normal respiratory effort, lungs clear to auscultation Cardiovascular RRR, no murmur, no edema Discharge Plan Discharge Items Patient Disposition: Home - Self-Care Reason For Visit: ETOH WITHDRAWAL Discharge Diagnosis: etoh withdrawal Activity: Resume your previous activity Non-emergency contact: Primary Care Provider Call non-emergency contact if: you have any medication questions Follow-up/Referrals: Justo Xavier DO [Primary Care Provider] - 04/18/24 3:25 pm Diet: Regular Addtl Attending Provider Instructions: We recommend followup with your PCP in 1-2 weeks. We will start you on naltrexone 50 mg once daily as directed. Do not skip doses. Naltrexone helps reduce cravings but works best when combined with avoiding alcohol. Consider individual counseling or group therapy. Look into support groups like AA or [employer]. If you experience any severe side effects like dificulty breathing or allergic reactions, please seek medical attention. Pending Studies at Discharge: No Stand-Alone Forms: My [facility] [employer] [facility], Smoking Cessation Medications and DC Order Prescriptions: New naltrexone 50 mg tablet 50 mg PO DAILY Qty: 30 0RF Continued acetaminophen [Tylenol] 325 mg tablet 325 mg PO QID PRN (Reason: Pain) Prilosec OTC 20 mg tablet,delayed release (DR/EC) 20 mg PO QPM coenzyme Q10 [Co Q-10] 10 mg capsule 10 mg PO QPM multivitamin with iron tablet 1 tab PO QAM clonidine 0.3 mg/24 hr patch weekly 0.3 mg transdermal WEEKLY Rx Instructions: Wednesday Evenings triamterene-hydrochlorothiazid [Dyazide] 37.5-25 mg capsule 1 cap PO QAM magnesium oxide 400 mg (241.3 mg magnesium) tablet 400 mg PO QAM clonidine HCl 0.1 mg tablet See Rx Instructions .ROUTE .COMPLEX Rx Instructions: Take 0.2mg by mouth in the morning and 0.1mg by mouth in the evening ascorbate calcium (vitamin C) 500 mg tablet 500 mg PO QAM atorvastatin 40 mg tablet 40 mg PO QPM Qty: 90 3RF sildenafil 100 mg tablet 50 - 100 mg PO DAILY PRN (Reason: sexual activity) Qty: 6 8RF nitroglycerin 0.4 mg tablet, sublingual 0.4 mg SL Q5M PRN (Reason: chest pain) Qty: 25 5RF Rx Instructions: PLACE 1 TAB UNDER TONGUE EVERY 5 MINS FOR UP TO 3 DOSES PRN CHEST PAIN. CALL 911 IF PAIN PERSISTS metoprolol succinate 50 mg tablet extended release 24 hr 50 mg PO BID Qty: 180 3RF lorazepam 1 mg tablet 1 mg PO DAILY PRN (Reason: anxiety) Qty: 90 0RF duloxetine 20 mg capsule,delayed release(DR/EC) 20 mg PO DAILY Qty: 30 3RF Eliquis 5 mg tablet 5 mg PO BID Qty: 180 3RF cyanocobalamin (vitamin B-12) [Vitamin B-12] 1,000 mcg Tablet 1,000 mcg PO 2XWK Rx Instructions: Tu/Wed Discharge Orders: Discharge Order (Routine); Ordered 04/14/24 Ordered By: Shay Ortiz Admission Data Admit Date/Time: 04/11/24 17:49 Attending Provider: Shay Ortiz Admit Provider: Harris Becker Primary Care Provider: Justo Xavier Other Providers: Harris Becker Other Interventions: Discharge Summary Assessment (RN) Last Done: 04/14/24 13:24 Hospital Stay Data Consultations 04/11/24 17:25 ED Decision to Admit Stat Pending Results Patient Have Any Pending Studies at Discharge: No Discharge Instructions Given to Patient (Per Discharging Provider) We recommend followup with your PCP in 1-2 weeks. We will start you on naltrexone 50 mg once daily as directed. Do not skip doses. Naltrexone helps reduce cravings but works best when combined with avoiding alcohol. Consider individual counseling or group therapy. Look into support groups like AA or [employer] recovery. If you experience any severe side effects like dificulty breathing or allergic reactions, please seek medical attention. Coding Diagnoses Alcohol abuse F10.10 Alcohol withdrawal F10.939 Primary hypertension I10 Hypertension type: primary hypertension Paroxysmal A-fib I48.0 Coronary artery disease involving [place] coronary artery of [place] heart without angina pectoris I25.10 Coronary Disease-Associated Artery/Lesion type: [place] artery [place] vs. transplanted heart: [place] heart Associated angina: without angina
== END 2024-04-14 14:08 | disposition home or self-care (01) ==
LOC: ED 14:00 → INTOOBSV 17:49 → EDINP 17:49 → SUATTDRO 17:49 → 2W 20:11